=== PATIENT | male | born 1950 | race Caucasian/White ===

== ENCOUNTER 2024-06-27 09:06 | Outpatient (RCR) | payer OTHER, SELFPAY ==
--- NOTE | 2024-06-27 22:07 | CTCCONSULT_ITS ---
[address] [address] RE: SCOTT GARZON D.O.B.: 1950 AGE: 74 DATE OF CONSULTATION: 06/27/2024 DIAGNOSIS: metastatic HCC ?? REFERRING PHYSICIAN: Isreal Saba PRIMARY PHYSICIAN :ANNIE REASON FOR CONSULTATION: Hepatocellular cancer HISTORY OF PRESENT ILLNESS: 74-year-old male was admitted to the hospital with a left upper extremity weakness and multiple groun d-level falls. Patient has been having numbness and tingling for 1 and half year. Patient underwent decompression of C3-C6 with C2-T1 fusion on 05/12/2024. Biopsy done at that time showed soft tissue mass which on pathology showed hepatocellular cancer. CT chest abdomen pelvis was done which showed anterior right third rib with extension into the soft t issue. 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 GI: No nausea, vomiting, diarrhea or constipation. CVS: No palpitations or angina pains. Respiratory: No cough, chest pain or shortness of breath. VITAL SIGNS: Date 06/27/2024 Time 9:35 AM Vital Signs, Weight and PS ? ??T (F) (F) 97.9 ??P 94 ??B/P (mmHg) 127/88 ??Height (in) (inch) 70 ??Weight (lb) (lb) 270 ??BSA(D) (m*2) 2.37 PHYSICAL EXAMINATION: Alert alert oriented x 4 wearing a cervical collar in wheelchair . Chest is clear to auscultation. No wheezes or rales audible. CVS: Rhythm regular, no murmurs or gallops present. Abdomen is soft. No hepatosplenomegaly. Extremities: No pedal edema or cyanosis. LABORATORY DATA: Date Time ASSESSMENT: Metastatic hepatocellular cancer Discussed with patient that it is unlikely presentation of SCC Patient's imaging and pathological diagnosis of SCC is confirmed PLAN: ??Get [facility] rec records to review EGD If patient have no varices will get immunotherapy with bevacizumab Need to review reports from [facility] before treatment decision Port catheter placement CASEY Get records CASEY ORDERS: + Comprehensive Metabolic Panel - 12 + CBC with Auto Diff + AFP MD Follow Up 3 Week RETURN TO CLINIC: cc: PCP, Referring: Isreal Saba Electronically Signed {Object.Sanct_Date} at {Object.Sanct_Time} {Object.Sanct_ID*PnP.NameFL@M}, {Object.Sanct_ID*PnP.Suffix@U} Patient: SCOTT GARZON : 1950 MR#: [id number] Account: [id number] FOLLOW UP NOTE Page 4 of 4
--- NOTE | 2024-07-13 09:03 | PC.NURSE ---
patient arrived to the chemical lab technician for staple removal. ten vladimir removed. patient tolerated well. education given to patient and . both expressed verbal understanding.
== END 2024-07-07 23:59 | disposition home or self-care (01) ==
LOC: SCTC 09:06
PROVIDERS: PCP Internal Medicine; Referring Provider Family Medicine; Visit Provider Internal Medicine Hematology & Oncology
DX: C22.0 Liver cell carcinoma (principal); C79.51 Secondary malignant neoplasm of bone
CPT/HCPCS: 99213; G0463

== ENCOUNTER 2024-07-02 07:54 | Outpatient (CLI) | payer OTHER, SELFPAY ==
[2024-06-29 14:29] VITALS: BMI 38.7
[2024-07-02] VITALS (17 sets, daily range): BP systolic 134–160; BP diastolic 83–98; PULSE 92–109; RESP 12–25; TEMP 36.3–36.7; O2SAT 95–99
[2024-07-02 08:14] LABS: Basophils # (Auto) 0.1 Thou/mm3 (0.0-0.2); Basophils % (Auto) 1 % (0-2.5); Eosinophils # (Auto) 0.3 Thou/mm3 (0.0-0.5); Eosinophils % (Auto) 3 % (0-10); Hematocrit 44.9 % (41.0-53.0); Hemoglobin 15.1 g/dL (13.5-16.0); Immature Granulocytes % (Auto) 0 % (0-0); Immature Granulocytes Auto 0.01 Thou/mm3 (0.00-0.00); Lymphocytes # (Auto) 2.8 Thou/mm3 (1.0-4.8); Lymphocytes % (Auto) 34 % (10-50); Mean Corpuscular HGB Conc 33.6 g/dl (31.0-37.0); Mean Corpuscular Hemoglobin 29.5 pg (25.0-35.0); Mean Corpuscular Volume 88 fL (80-100); Monocytes # (Auto) 0.7 Thou/mm3 (0.0-0.8); Monocytes % (Auto) 8 % (0-12); Neutrophils # (Auto) 4.4 Thou/mm3 (1.8-7.7); Neutrophils % (Auto) 53 % (37-80); Nucleated Red Blood Cell % 0 /100 WBC (0); Platelet Count 314 Thou/mm3 (140-440); RDW Standard Deviation 45.5 fL (35.1-43.9); Red Blood Count 5.12 Miln/mm3 (4.50-5.90); White Blood Count 8.2 Thou/mm3 (3.8-10.6)
[2024-07-02 08:37] LABS: INR 1.2 (0.9-1.3); Partial Thromboplastin Time 32.1 Seconds (22.0-36.0); Prothrombin Time 12.6 Seconds (9.0-12.2)
--- NOTE | 2024-07-02 09:30 | XR_ITS ---
Examination: IR venous implantation Port-A-Cath Ultrasound-guided needle placement right internal jugular vein. Fluoroscopy AP Chest, portable single view Exam date and time: July 02, 2024 at 0856 hours INDICATIONS: Multiple myeloma, need for long-term intravenous chemotherapy. Informed consent provided Technique: A timeout was completed, verifying correct patient, procedure, site, positioning, and special equipment if applicable The patient was placed in a dependent position appropriate for central line placement based on the vein to be cannulated. The patient's right neck was prepped and draped in sterile fashion. Maximum Sterile Barrier Technique used including cap, mask, sterile gown, sterile gloves, and sterile full body drape. If ultrasound technique used: sterile gel and sterile probe covers. Hand Hygiene performed using proper scrub, soap and water, or alcohol-based hand rub. Site right portable apparatus utilized to confirm patency of the right internal blood jugular vein Utilizing ultrasonographic guidance successful 21-gauge needle puncture into the right internal jugular vein Ultrasound images were recorded and stored. Successful micropuncture with a 21-gauge needle was performed. 0.18 wire guide was introduced into the IVC under fluoroscopic guidance. The wires is then exchanged for a 0.25 J-wire guide placed in the vena cava. Blunt dissection utilized to form a pocket for the Port-A-Cath reservoir in the upper right chest 20 cm 8 [place] catheter then connected to the Port-A-Cath reservoir in place to a venous sheath into the superior vena cava in proper position The attending radiologist was present for the entire procedure Estimated blood loss2 cc. Findings: Under fluoroscopy, the tip of the Port-A-Cath is in good position in the vena cava. Portable chest x-ray, post Port-A-Cath placement, as ordered. Impression: Successful ultrasound-guided needle placement right internal jugular vein. Successful IR venous implantation Port-A-Cath Fluoroscopy 0.1 minute radiation dose 3.54 milligray 1 spot fluoroscopic chest film. AP portable chest completion procedure demonstrates satisfactory position Port-A-Cath tip SVC. May use Port-A-Cath
[2024-07-02] MEDS: LIDOCAINE INJ PF 1% 30 ML VIAL 5 ML INFL (09:40)
[2024-07-02] MEDS: HEPARIN SOD LOCK SYR 100 UNIT/ML 500 UNIT INTRACATH (09:42)
[2024-07-02] MEDS: ceFAZolin INJ 1 GM VIAL TOPICAL (09:42)
[2024-07-02] MEDS: ceFAZolin 1 GM in SODIUM CHLORIDE 0.9% 100 ML IV (09:42)
[2024-07-02] MEDS: SODIUM CHLORIDE 0.9% 500 ML 500 ML 50 ML IV (09:43)
[2024-07-02] MEDS: LIDOCAINE 1% W/EPI 1:100K 20 ML VIAL 7 ML INFL (09:45)
[2024-07-02] MEDS: fentaNYL CIT INJ 50 mCg/ML AMP 2ML 125 MCG IVP (09:49)
--- NOTE | 2024-07-13 08:34 | XR_ITS ---
Examination: IR removal vladimir at the Port-A-Cath insertion site Exam date and time: July 13, 2024 0834 hours INDICATIONS: Venous implantation Port-A-Cath July 02, 2024, patient returns for removal of vladiimr at the incision site of the Port-A-Cath TECHNIQUE AND FINDINGS: Informed consent provided. Timeout performed. Skin prepped over the entrance site of the Port-A-Cath closure devices and sterile drape applied hand hygiene Successful removal of the Port-A-Cath vladimir at the incision site Estimated blood loss 0 cc IMPRESSION: Successful IR removal closure vladimir at the Port-A-Cath insertion site
== END 2024-07-02 11:45 | disposition home or self-care (01) ==
PROVIDERS: Radiology Diagnostic Radiology; PCP Internal Medicine Hematology & Oncology; Referring Provider Internal Medicine Hematology & Oncology; Visit Provider Internal Medicine Hematology & Oncology
DX: C79.51 Secondary malignant neoplasm of bone (principal)
CPT/HCPCS: 36558; 36415; 76937; 77001; 85025; 85610; 85730; C1769; C1788; C1894; J0690; J1642; J3010; J3490; J7040; J7050

== ENCOUNTER → 2024-07-13 | Outpatient (CLI) | payer OTHER, SELFPAY | END | disposition home or self-care (01) | LOC: SDIM 08:22 | PROVIDERS: PCP Internal Medicine Hematology & Oncology; Referring Provider Radiology Diagnostic Radiology; Visit Provider Radiology Diagnostic Radiology | DX: Z48.02 Encounter for removal of sutures (principal) ==

== ENCOUNTER 2024-07-25 07:41 | Outpatient (RCR) | payer OTHER, SELFPAY ==
[2024-07-25 08:53] LABS: Collection Type, Urine Voided
[2024-07-25 08:54] LABS: Basophils # (Auto) 0.1 Thou/mm3 (0.0-0.2); Basophils % (Auto) 1 % (0-2.5); Eosinophils # (Auto) 0.2 Thou/mm3 (0.0-0.5); Eosinophils % (Auto) 3 % (0-10); Hematocrit 45.4 % (41.0-53.0); Hemoglobin 15.5 g/dL (13.5-16.0); Immature Granulocytes % (Auto) 0 % (0-0); Immature Granulocytes Auto 0.02 Thou/mm3 (0.00-0.00); Lymphocytes # (Auto) 2.6 Thou/mm3 (1.0-4.8); Lymphocytes % (Auto) 32 % (10-50); Mean Corpuscular HGB Conc 34.1 g/dl (31.0-37.0); Mean Corpuscular Hemoglobin 29.1 pg (25.0-35.0); Mean Corpuscular Volume 85 fL (80-100); Monocytes # (Auto) 0.7 Thou/mm3 (0.0-0.8); Monocytes % (Auto) 8 % (0-12); Neutrophils # (Auto) 4.6 Thou/mm3 (1.8-7.7); Neutrophils % (Auto) 56 % (37-80); Nucleated Red Blood Cell % 0 /100 WBC (0); Platelet Count 294 Thou/mm3 (140-440); RDW Standard Deviation 43.1 fL (35.1-43.9); Red Blood Count 5.32 Miln/mm3 (4.50-5.90); White Blood Count 8.2 Thou/mm3 (3.8-10.6)
[2024-07-25 09:16] LABS: Bacteria,Urine Rare; Bilirubin,Urine Negative (Negative); Blood,Urine Negative (Negative); Clarity,Urine Clear (Clear/Hazy); Color,Urine Yellow (Lt Yel-Yel); Culture Indicated,Urine Not Indicated; Glucose, Urine Negative (Negative); Hyaline Casts,Urine < 1 /hpf (0-1); Ketones,Urine Negative (Negative); Leukocyte Esterase,Urine Negative (Negative); Nitrite,Urine Negative (Negative); PH,Urine 5.5 (5.0-7.0); Protein,Urine Negative (Neg - Trace); RBC,Urine 2 /hpf (0-3); Specific Gravity,Urine 1.027 (1.001-1.035); Squamous Epithelial Cell,Urine < 1 /hpf (0-5); Urobilinogen,Urine Negative mg/dL (0.0-1.0); WBC,Urine 2 /hpf (0-5)
[2024-07-25 09:23] LABS: Alanine Aminotransferase 43 U/L (10-49); Albumin, Serum 4.6 gm/dL (3.4-4.8); Albumin/Globulin Ratio 1.3 (1.2-2.2); Alkaline Phosphatase 210 U/L (46-116); Anion Gap 7 (7-16); Aspartate Amino Transferase 69 U/L (0-34); BUN/Creatinine Ratio 20 Ratio (12-20); Bilirubin,Total 0.7 mg/dL (0.3-1.2); Blood Urea Nitrogen 14 mg/dL (9-23); Calcium 9.5 mg/dL (8.3-10.6); Calcium (Corrected) 9.5 mg/dL (8.5-10.1); Carbon Dioxide 23.3 mMol/L (20.0-31.0); Chloride 102 mMol/L (98-107); Creatinine (Component) 0.7 mg/dL (0.6-1.3); Globulin 3.5 gm/dL (2.3-3.5); Glucose 115 mg/dL (74-106); Osmolality,Calculated 266 (275-295); Potassium 3.9 mMol/L (3.4-5.1); Sodium 132 mMol/L (136-145); Thyroid Stimulating Hormone 4.27 uIU/mL (0.55-4.78); Total Protein 8.1 gm/dL (5.7-8.2); eGFR > 60 See Note
== END 2024-08-07 23:59 | disposition home or self-care (01) ==
LOC: SCTC 07:41
PROVIDERS: PCP Family Medicine; Referring Provider Internal Medicine Hematology & Oncology; Visit Provider Internal Medicine Hematology & Oncology
DX: Z51.11 Encounter for antineoplastic chemotherapy (principal); C22.0 Liver cell carcinoma; C79.51 Secondary malignant neoplasm of bone
CPT/HCPCS: 80053; 81001; 82105; 84443; 85025; 96413; 96417; 99424; 99425; A4216; J1642; J7040; J7050; J9022; Q5126

== ENCOUNTER 2024-08-15 07:43 | Outpatient (RCR) | payer OTHER, SELFPAY ==
[2024-08-15 09:25] LABS: Basophils # (Auto) 0.1 Thou/mm3 (0.0-0.2); Basophils % (Auto) 1 % (0-2.5); Eosinophils # (Auto) 0.3 Thou/mm3 (0.0-0.5); Eosinophils % (Auto) 4 % (0-10); Hematocrit 47.7 % (41.0-53.0); Hemoglobin 15.8 g/dL (13.5-16.0); Immature Granulocytes % (Auto) 0 % (0-0); Immature Granulocytes Auto 0.02 Thou/mm3 (0.00-0.00); Lymphocytes # (Auto) 2.6 Thou/mm3 (1.0-4.8); Lymphocytes % (Auto) 32 % (10-50); Mean Corpuscular HGB Conc 33.1 g/dl (31.0-37.0); Mean Corpuscular Hemoglobin 28.3 pg (25.0-35.0); Mean Corpuscular Volume 86 fL (80-100); Monocytes # (Auto) 0.5 Thou/mm3 (0.0-0.8); Monocytes % (Auto) 6 % (0-12); Neutrophils # (Auto) 4.6 Thou/mm3 (1.8-7.7); Neutrophils % (Auto) 57 % (37-80); Nucleated Red Blood Cell % 0 /100 WBC (0); Platelet Count 398 Thou/mm3 (140-440); RDW Standard Deviation 43.8 fL (35.1-43.9); Red Blood Count 5.58 Miln/mm3 (4.50-5.90); White Blood Count 8.1 Thou/mm3 (3.8-10.6)
[2024-08-15 09:52] LABS: Alanine Aminotransferase 53 U/L (10-49); Albumin, Serum 4.3 gm/dL (3.4-4.8); Albumin/Globulin Ratio 1.1 (1.2-2.2); Alkaline Phosphatase 241 U/L (46-116); Anion Gap 10 (7-16); Aspartate Amino Transferase 93 U/L (0-34); BUN/Creatinine Ratio 25 Ratio (12-20); Bilirubin,Total 0.6 mg/dL (0.3-1.2); Blood Urea Nitrogen 15 mg/dL (9-23); Calcium 9.4 mg/dL (8.3-10.6); Calcium (Corrected) 9.4 mg/dL (8.5-10.1); Carbon Dioxide 21.7 mMol/L (20.0-31.0); Chloride 103 mMol/L (98-107); Creatinine (Component) 0.6 mg/dL (0.6-1.3); Glucose 124 mg/dL (74-106); Osmolality,Calculated 271 (275-295); Potassium 3.9 mMol/L (3.4-5.1); Sodium 135 mMol/L (136-145); Thyroid Stimulating Hormone 3.27 uIU/mL (0.55-4.78); Total Protein 8.3 gm/dL (5.7-8.2); eGFR > 60 See Note
[2024-08-15 11:32] LABS: Collection Type, Urine Voided
[2024-08-15 12:47] LABS: Bilirubin,Urine Negative (Negative); Blood,Urine Negative (Negative); Clarity,Urine Clear (Clear/Hazy); Color,Urine Yellow (Lt Yel-Yel); Glucose, Urine Negative (Negative); Ketones,Urine Negative (Negative); Leukocyte Esterase,Urine Negative (Negative); Nitrite,Urine Negative (Negative); Protein,Urine Trace (Neg - Trace); RBC,Urine 13 /hpf (0-3); Specific Gravity,Urine 1.037 (1.001-1.035); Squamous Epithelial Cell,Urine 1 /hpf (0-5); Urobilinogen,Urine Negative mg/dL (0.0-1.0); WBC,Urine 3 /hpf (0-5)
== END 2024-09-07 23:59 | disposition home or self-care (01) ==
LOC: SCTC 07:43
PROVIDERS: PCP Family Medicine; Referring Provider Family Medicine; Visit Provider Internal Medicine Hematology & Oncology
DX: Z51.11 Encounter for antineoplastic chemotherapy (principal); C22.0 Liver cell carcinoma; C79.51 Secondary malignant neoplasm of bone
CPT/HCPCS: 80053; 81001; 82105; 84443; 85025; 96413; 96417; A4216; J1642; J7050; J9022; Q5126

== ENCOUNTER 2024-08-20 22:36 | Emergency (ER) | payer OTHER, SELFPAY ==
[2024-08-20 22:39] VITALS: BP 121/86; PULSE 97; RESP 18; TEMP 36.7; O2SAT 95; BMI 38.7
[2024-08-20 22:49] VITALS: PULSE 74; RESP 16; O2SAT 97; BMI 38.7
--- NOTE | 2024-08-20 23:01 | PD.EDWOUND ---
ED Wound/Laceration-RME/HPI General Chief Complaint: Wound/Laceration Stated Complaint: FALL Time Seen by Provider: 08/20/24 22:56 Arrival date/time: 08/20/24 22:36 RME / HPI RME / HPI narrative: Dr. Mata?s Main ED Evaluation: 74yo male with pmhx CA, HTN, DM, neuropathy BIBA from home presents to the ED for a fall. EMS states the patient was sitting at the edge of his bed when he fell forward and hit his head. EMS denies any LOC. Patient is AAOx2 at baseline. He denies any chest pain, abdominal pain, shortness of breath, extremity pain or any other associated symptoms. EMS denies the patient being on blood thinners. No known allergies. Related Data Home Medications ?Medication ?Instructions ?Recorded ?Confirmed gabapentin 100 mg tablet 100 mg PO Q8H 06/29/24 06/29/24 lidocaine 5 % topical patch 1 patch topical QDAY 06/29/24 06/29/24 methocarbamol 500 mg tablet 500 mg PO QID PRN Pain 06/29/24 06/29/24 sodium chloride 1 gram tablet 1,000 mg PO QID hypotension 06/29/24 06/29/24 Allergies Allergy/AdvReac Type Severity Reaction Status Date / Time No Known Allergies Allergy Verified 06/29/24 14:28 Review of Systems Review of Systems Systems Reviewed: All systems reviewed, normal except as documented Past Medical History Past Medical History NEUROLOGIC: Negative Neurological Disorders CARDIAC: Positive Cardiac Disorders, Cardiac Arrhythmia, Hypertension and Hypotension; Negative Hypercholesterolemia or Congestive Heart Failure RESPIRATORY: Negative Chronic Obstructive Pulmonary Disease (COPD) GASTROINTESTINAL: Positive Cirrhosis; Negative Gastrointestinal Disorders GENITOURINARY: Negative Genitourinary Disorders or Renal Disease MUSCULOSKELETAL: Positive Musculoskeletal Disorders (cannot lift left shoulder; weakness use wheelchair and walker for mobility) and Arthritis ENDOCRINE: Negative Endocrine Disorders, Diabetes Mellitus Type 1 or Diabetes Mellitus Type 2 HEMATOLOGIC: Negative Blood Disorders OTHER HISTORY: Positive Cancer (hepatocellular carcinoma (liver)); Negative Blood Transfusions or Anesthesia Reactions Surgical History SURGICAL: Negative Cardiac Surgery, Endocrine Surgery, Abdominal Surgery or Joint Replacement Social History SMOKING STATUS: Never smoker ED Exam Narrative Physical exam: GENERAL APPEARANCE: AxOx4, generally well-appearing, no acute distress. HEENT: NC, 3 cm laceration to the right scalp. MMM. EOMI, clear conjunctiva, oropharynx clear. NECK: Supple without lymphadenopathy. No stiffness or restricted ROM. HEART: Normal rate and regular rhythm, normal S1/S1, no m/r/g LUNGS: CTAB, moving air well. No crackles or wheezes are heard. ABDOMEN: Soft, nontender, nondistended with good bowel sounds heard. BACK: No midline C/T/L spine pain or deformity, No CVAT, no obvious deformity. EXTREMITIES: Without cyanosis, clubbing or edema. MUSCULOSKELETAL: FROM of all major joints, no chest tenderness NEUROLOGICAL: Grossly nonfocal. Alert and oriented, moving all 4 extremities. CN not formally tested but appear grossly intact. Observed to ambulate with normal gait. Skin: Warm and dry without any rash. Course Quality Measures none Orders Category Date Time Status EKG (ED ONLY) *Do not use* NOW Care 08/20/24 23:33 Completed EKG (ED ONLY) *Do not use* NOW Care 08/21/24 03:[address] cervical spine wo con Urgent Exams 08/21/24 00:[address] head/brain wo con Stat Exams 08/20/24 23:22 Taken EKG (ED Only) Stat Exams 08/20/24 23:33 Ordered EKG (ED Only) Stat Exams 08/21/24 03:34 Draft CBC Stat Lab 08/20/24 23:34 Completed CMP [Comprehensive Metabolic Panel] Stat Lab 08/20/24 23:34 Completed Magnesium Stat Lab 08/20/24 23:34 Completed Troponin I Stat Lab 08/21/24 00:14 Completed Troponin I Stat Lab 08/21/24 02:44 Completed Diltiazem [Cardizem] Med 08/21/24 00:36 Discontinued 60 mg PO X1 ONE Sodium Chloride 0.9% 1000 ml [Ns] 1,000 ml Med 08/21/24 00:55 Discontinued IV 999 mls/hr Vital Signs Vital signs: Vital Signs Temperature 98.1 F 08/20/24 22:39 Pulse Rate 97 08/20/24 22:39 Respiratory Rate 18 08/20/24 22:39 Blood Pressure 121/86 H 08/20/24 22:39 Pulse Oximetry (%) 95 08/20/24 22:39 Oxygen Delivery Method Room Air 08/20/24 22:39 Pulse ox is 95% on room air, which is normal according to my interpretation. Procedures -ED Laceration Laceration 1: Site: scalp Side (If applicable): right Size (cm): 3 Description: linear Skin layer closed with: other (3 vladimir; no anesthetic needed) Wound / Laceration MDM Narrative MDM Narrative:: Scribe Attestation: 08/21/24 Brianna Bajwa am scribing for and in the presence of Dr. Mata. Patient data External records reviewed:: [facility] previous records (Per chart review, patient was seen here on 05/10/24 for a cervical spinal mass.) Clinical information provided by:: EMS Social determinants that could affect healthcare access:: none Patient has the following chronic illnesses:: metastatic hepatocellular cancer, HTN How is presenting disease/condition affected by chronic disease/condition?: uneffected by Evaluation data The following diagnostics were reviewed and interpreted by me:: lab results, radiology exam(s) and EKG tracing(s) Lab and/or radiology exams considered but not ordered:: none Interpretation Summary: CBC is normal, Sodium is slightly low at 130, troponin is negative, Magnesium is normal, repeat troponin is normal, according to my interpretation. EKG done at 0025, aFib RvR, rate of 120, widened QRS, LBBB, aFib and LBBB are new compared to previous EKG done on 05/11/24. Repeat EKG done at 0341, NSR, rate of 96, widened QRS, IVCD pattern, no acute ST or T wave changes, according to my interpretation. ----- Telerad Preliminary Report Draft Patient: GAY GARZON. Record#: [id number] Birthdate: 1950 Age/Sex: 74 / M Location: [facility] Attending Dr: Ordering Physician: Date of Service: Procedure(s): Accession Number(s): cc: ~ CT scan of the head without intravenous contrast (axial sections with sagittal and coronal reformats) August 20, 2024 at 2347 hours Clinical History: Ground-level fall. No prior study is available for comparison. Findings: There is no evidence of intracranial hemorrhage, mass effect or midline shift. There is mild volume loss. The calvarium is intact. The mastoid air cells and the visualized paranasal sinuses are clear. Right frontal soft tissue swelling/hematoma. Impression: No evidence of intracranial hemorrhage, midline shift or calvarial fracture Mild volume loss. Report Electronically Signed By: Misbah Montoya 08/21/2024 12:54:22 AM [EST] ----- Telerad Preliminary Report Draft Patient: GAY GARZON Record#: [id number] Birthdate: 1950 Age/Sex: 74 / M Location: [facility] Attending Dr: Ordering Physician: Date of Service: Procedure(s): Accession Number(s): cc: ~ CT scan of the cervical spine without intravenous contrast (axial sections with sagittal and coronal reformats) August 21, 2024 at 0016 hours Clinical History: GLF No prior study is available for comparison. Findings: The evaluation is slightly limited by streak artifact. There is no acute fracture or subluxation. There is spinal fusion at the C2-T1 level with fusion rods and pedicle screws, and laminectomy defects at the C3-C6 levels. There is soft tissue mass with destruction of the left C4 body/left lateral mass and C5 body/left lateral mass and extension into the left paravertebral soft tissues. Spinal canal extension at C5 cannot be excluded. There are multilevel mild to moderate degenerative changes Impression: No evidence of acute fracture or subluxation. Soft tissue mass with destruction of the left C4 body/left lateral mass and C5 body/left lateral mass and extension into the left paravertebral soft tissues. Spinal canal extension at C5 cannot be excluded. Metastases cannot be excluded. Recommend further evaluation with MRI with intravenous contrast. Mild to moderate degenerative changes as described. Report Electronically Signed By: Misbah Montoya 08/21/2024 1:04:57 AM [EST] Medications / Prescriptions Medications or Prescriptions considered but not ordered:: none Medication administrations:: Medication Administration History Discontinued Medications Diltiazem HCl (Diltiazem 30 Mg Tablet) 60 mg PO X1 ONE Stop: 08/21/24 00:37 Last Admin: 08/21/24 01:13 Dose: 60 mg Documented By: ARIS Sodium Chloride (Ns) 1,000 mls @ 999 mls/hr IV .Q1H1M ONE Stop: 08/21/24 01:55 Last Infusion: 08/21/24 02:55 Dose: Infused Documented By: Admin: 08/21/24 01:15 Dose: 999 mls/hr Documented By: CB see above Consultations Consultation(s) initiated? (list below): No Diagnosis Wound Differential Diagnosis: laceration and other (fracture, dislocation, contusion, ICH) Most likely diagnosis given after review of the tests above:: see below Admission Indicated Admission indicated?: not indicated Admission Request Was there a request for admission?: No Disposition Plan Disposition Plan: Discharge Discharge Attestation Discharge Attestation: The patient and all family members were given an opportunity to ask questions and understood the discharge instructions. Discharge instructions specifically effects, indications for sooner follow up or return to the emergency department, and the expected course of current diagnosis. Patient condition: Stable Discharge Plan Plan Patient Disposition: HOME (Self Care) Prescriptions/Referrals Prescriptions/Med Rec: No Action methocarbamol 500 mg Tablet 500 mg PO QID PRN (Reason: Pain) Rx Instructions: 1.5 tab PO 4x day prn sodium chloride 1 gram Tablet 1,000 mg PO QID Rx Instructions: 1gm tab-take 2 tablets PO 4x a day lidocaine 5 % Adhesive Patch,Medicated 1 patch TOPICAL QDAY Rx Instructions: leave on most painful area for up to 12 hrs. (off 12 hrs, on 12 hrs) gabapentin 100 mg Tablet 100 mg PO Q8H Referrals: No Primary/Family,Physician [Primary Care Provider] - In 1 week Problem List Clinical Impression: Ground-level fall, Laceration of scalp, Dehydration Patient/Caregiver Discharge Instructions Education Materials: ED Dehydration (Adult), ED Head Injury (Adult), ED Laceration Scalp Sutures or ... Additional Instructions: Follow-up with your primary care doctor in 5 to 7 days for recheck and removal of your vladimir. You can return to the emergency department sooner symptoms worsen or if you notice any new, concerning issues. Print Language: Monegasque Stand Alone Forms: [employer] Award Info., Patient Portal Info Letter
[2024-08-20 23:17] VITALS: BP 131/88; PULSE 121; RESP 18; O2SAT 95
--- NOTE | 2024-08-20 23:22 | XR_ITS ---
Examination: CT brain head without contrast. 2-D sagittal coronal reconstructions Date and time of exam:August 20, 2024 at 1147 hours INDICATIONS: Ground-level fall striking the right side of the head with headache today CTDI: vol (mGy):53.9 DLP: (mGycm):1104 Technique: Multiple CT axial sections of the brain have been obtained, 5 mm slice thickness. Contrast has not been administered. 2-D sagittal, coronal reconstructions have been obtained Low dose protocols were performed. One or more of the following dose reduction techniques were used; automated exposure control, adjustment of the mA and/or KV according to patient size, use of iterative reconstruction technique. Findings: No significant ventricular enlargement. Intra-axial or extra-axial hemorrhage density is not seen. No mass effect or midline shift Basal cisterns are not remarkable. Fourth ventricle is midline. Cranial vault intact. Impression: Negative for acute hemorrhage, mass effect or midline shift
--- NOTE | 2024-08-21 00:22 | XR_ITS ---
Examination: CT cervical spine without contrast 2-D sagittal reconstructions 2-D coronal reconstructions 3-D reconstructions. Exam date and time:August 21, 2024 1216 hours INDICATIONS: Ground-level fall with injury to the neck, neck pain CTDI:vol (mGy) 8.93 DLP: (mGycm) 207 Technique: Multiple 2 mm axial sections of the cervical spine have been obtained. The coronal and sagittal reconstructions have been obtained. 3-D reconstructions have been obtained. Low dose protocols were performed. One or more of the following dose reduction techniques were used; automated exposure control, adjustment of the mA and/or KV according to patient size, use of iterative reconstruction technique. Findings: Soft tissue mass with bone destruction involving the C4, C5 vertebral bodies involving the pedicle on the left side at C4 and involving the entire C5 vertebral body Impression: No acute cervical fracture. Odontoid is intact Transpedicular stabilization, extensive involving cervical vertebral bodies IMPRESSION: No acute cervical fracture Prominent bone destruction involving C4, and C5 most consistent with osseous metastatic disease Recommend MRI cervical spine follow-up, pre and postcontrast to assess for cord compression
[2024-08-21 00:53] LABS: Alanine Aminotransferase 31 U/L (10-49); Albumin, Serum 4.2 gm/dL (3.4-4.8); Alkaline Phosphatase 272 U/L (46-116); Anion Gap 10 (7-16); Aspartate Amino Transferase 73 U/L (0-34); BUN/Creatinine Ratio 20 Ratio (12-20); Blood Urea Nitrogen 16 mg/dL (9-23); Calcium 9.5 mg/dL (8.3-10.6); Calcium (Corrected) 9.5 mg/dL (8.5-10.1); Carbon Dioxide 23.9 mMol/L (20.0-31.0); Chloride 96 mMol/L (98-107); Creatinine (Component) 0.8 mg/dL (0.6-1.3); Estimated Creatinine Clearance 107.9 mL/min (>60); Globulin 4.2 gm/dL (2.3-3.5); Glucose 124 mg/dL (74-106); Magnesium 2.3 mg/dL (1.6-2.6); Osmolality,Calculated 263 (275-295); Potassium 4.8 mMol/L (3.4-5.1); Sodium 130 mMol/L (136-145); Total Protein 8.4 gm/dL (5.7-8.2); Troponin I < 0.020 ng/mL (0.0-0.045); eGFR > 60 See Note
--- NOTE | 2024-08-21 00:55 | PRELIM_ITS ---
CT scan of the head without intravenous contrast (axial sections with sagittal and coronal reformats) August 20, 2024 at 2347 hoursClinical History: Ground-level fall.No prior study is available for co mparison. Findings:There is no evidence of intracranial hemorrhage, mass effect or midline shift. The re is mild volume loss. The calvarium is intact. The mastoid air cells and the visualized paranasal s inuses are clear. Right frontal soft tissue swelling/hematoma. Impression:No evidence of intracranial hemorrhage, midline shift or calvarial fractureMild volume loss. Report Electronically Signed By: Sa viviane Montoya 08/21/2024 12:54:22 AM [EST]
[2024-08-21 01:01] LABS: Basophils # (Auto) 0.1 Thou/mm3 (0.0-0.2); Basophils % (Auto) 1 % (0-2.5); Eosinophils # (Auto) 0.1 Thou/mm3 (0.0-0.5); Eosinophils % (Auto) 1 % (0-10); Hematocrit 48.7 % (41.0-53.0); Hemoglobin 16.2 g/dL (13.5-16.0); Immature Granulocytes % (Auto) 0 % (0-0); Immature Granulocytes Auto 0.03 Thou/mm3 (0.00-0.00); Lymphocytes % (Auto) 21 % (10-50); Mean Corpuscular HGB Conc 33.3 g/dl (31.0-37.0); Mean Corpuscular Hemoglobin 28.7 pg (25.0-35.0); Mean Corpuscular Volume 86 fL (80-100); Monocytes # (Auto) 0.9 Thou/mm3 (0.0-0.8); Monocytes % (Auto) 10 % (0-12); Neutrophils # (Auto) 6.2 Thou/mm3 (1.8-7.7); Neutrophils % (Auto) 67 % (37-80); Nucleated Red Blood Cell % 0 /100 WBC (0); Platelet Count 390 Thou/mm3 (140-440); RDW Standard Deviation 46.2 fL (35.1-43.9); Red Blood Count 5.64 Miln/mm3 (4.50-5.90); White Blood Count 9.3 Thou/mm3 (3.8-10.6)
--- NOTE | 2024-08-21 01:05 | PRELIM_ITS ---
CT scan of the cervical spine without intravenous contrast (axial sections with sagittal and coronal reformats) August 21, 2024 at 0016 hours Clinical History: GLFNo prior study is available for compar balbina. Findings:The evaluation is slightly limited by streak artifact. There is no acute fracture or s ubluxation. There is spinal fusion at the C2-T1 level with fusion rods and pedicle screws, and joselin ctomy defects at the C3-C6 levels. There is soft tissue mass with destruction of the left C4 body/lef t lateral mass and C5 body/left lateral mass and extension into the left paravertebral soft tissues. Spinal canal extension at C5 cannot be excluded. There are multilevel mild to moderate degenerative changesImpression:No evidence of acute fracture or subluxation.Soft tissue mass with destruction of the left C4 body/left lateral mass and C5 body/left lateral mass and extension into the left paraver tebral soft tissues. Spinal canal extension at C5 cannot be excluded. Metastases cannot be excluded. Recommend further evaluation with MRI with intravenous contrast.Mild to moderate degenerative change s as described. Report Electronically Signed By: Misbah Montoya 08/21/2024 1:04:57 AM [EST]
[2024-08-21 01:13] VITALS: BP 114/84; PULSE 126
[2024-08-21] MEDS: DILTIAZEM 30 MG TABLET 60 MG PO (01:13)
[2024-08-21] MEDS: SODIUM CHLORIDE 0.9% 1000 ML 1,000 ML 999 ML IV (01:15)
[2024-08-21 01:16] VITALS: BP 114/84; PULSE 123; RESP 20; TEMP 36.8; O2SAT 95
--- NOTE | 2024-08-21 03:34 | EKG_ITS ---
[facility] Test Date: 2024-08-21 Pat Name: GAY AGRZON Department: Room: - Gender: Male Content Manager: : 1950 Requested By: Cesar Mata Order Number: [id number] Reading MD: Cesar Mata Measurements Intervals [place] Rate: 120 P: RI: QRS: 0 QRSD: 136 T: 136 QT: 340 QTc: 481 Interpretive Statements ATRIAL FIBRILLATION WITH RAPID VENTRICULAR RESPONSE LEFT BUNDLE BRANCH BLOCK [120+ ms QRS DURATION, 80+ ms Q/S IN V1/V2, 85+ ms R IN I/aVL/V5/V6] Compared to ECG 05/10/2024 13:17:04 Left bundle-branch block now present Sinus rhythm no longer present T-wave abnormality no longer present /store/S0/[id number]/[id number].pdf
[2024-08-21 03:52] LABS: Troponin I < 0.020 ng/mL (0.0-0.045)
[2024-08-21 05:45] VITALS: BP 128/97; PULSE 102; RESP 18; TEMP 36.6; O2SAT 95
[2024-08-21 09:43] VITALS: BP 125/83; PULSE 92; RESP 18; TEMP 36.7; O2SAT 99
--- NOTE | 2024-08-21 09:48 | PC.CC ---
ASW approached by bedside RN, pt will need transport home. 09-ASW contacted [facility], pending call back with ETA. 09-Call back from [facility]. Transport ETA set for 1445. ASW informed that pt refused to wait until 1445 and is being transported by family. 09-ASW made contact with [facility], to cancel transport request.
== END 2024-08-21 09:47 | disposition home or self-care (01) ==
PROVIDERS: Emergency Provider Emergency Medicine
DX: S01.01XA Laceration without foreign body of scalp, initial encounter (principal); E86.0 Dehydration; M79.89 Other specified soft tissue disorders; I48.91 Unspecified atrial fibrillation; I44.7 Left bundle-branch block, unspecified; I10 Essential (primary) hypertension; W06.XXXA Fall from bed, initial encounter
CPT/HCPCS: 12002; 36415; 70450; 72125; 80053; 83735; 84484; 85025; 93005; 96360; 96361; 99284; J7030; A9270

== ENCOUNTER 2024-09-19 08:18 | Outpatient (RCR) | payer OTHER, SELFPAY | END 2024-10-05 23:59 | disposition home or self-care (01) | LOC: SCTC 08:18 | PROVIDERS: Referring Provider Internal Medicine Hematology & Oncology; Visit Provider Internal Medicine Hematology & Oncology | DX: C22.0 Liver cell carcinoma (principal); C79.51 Secondary malignant neoplasm of bone | CPT/HCPCS: 80053; 81001; 84443; 85025 ==

== ENCOUNTER 2024-09-19 08:44 | Emergency (ER) | payer OTHER, SELFPAY ==
[2024-09-19] VITALS (8 sets, daily range): BP systolic 119–153; BP diastolic 77–103; PULSE 98–133; RESP 15–20; TEMP 36.8–38.1; O2SAT 95–97; BMI 33.0
--- NOTE | 2024-09-19 08:58 | EKG_ITS ---
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
--- NOTE | 2024-09-19 08:59 | EDRME_ITS ---
Rapid Medical Screening Exam RME Arrival date/time: 09/19/24 08:44 74-year-old male with a history of liver cancer that has metastasized to his lungs and throat presents to the emergency room with a chief complaint of altered mental status x 6 days. Patient was sent over by the cancer treatment center for altered mental status, hallucinations, insomnia. Patient was recently seen at the [facility] and the at bedside was told that if symptoms get worse to bring him to the emergency room. I have greeted and performed a focused initial assessment of this patient. A comprehensive ED assessment and evaluation of the patient, analysis of all test results, and completion of the medical decision making process will be conducted by additional ED providers. Chief Complaint: Altered Mental Status Vital signs reviewed by provider: Yes
--- NOTE | 2024-09-19 08:59 | XR_ITS ---
Examination: CT brain head without contrast. 2-D sagittal coronal reconstructions Date and time of exam:September 19, 2024 at 0929 hours INDICATIONS: Onset altered mental status today CTDI: vol (mGy):54 DLP: (mGycm):1108 Technique: Multiple CT axial sections of the brain have been obtained, 5 mm slice thickness. Contrast has not been administered. 2-D sagittal, coronal reconstructions have been obtained Low dose protocols were performed. One or more of the following dose reduction techniques were used; automated exposure control, adjustment of the mA and/or KV according to patient size, use of iterative reconstruction technique. Findings: No significant ventricular enlargement. Intra-axial or extra-axial hemorrhage density is not seen. No mass effect or midline shift Basal cisterns are not remarkable. Fourth ventricle is midline. Cranial vault intact. Impression: Negative for acute hemorrhage, mass effect or midline shift Advise clinical correlation follow-up accordingly
--- NOTE | 2024-09-19 09:22 | PD.EDAMS ---
Altered Mental Status RME/HPI General Chief Complaint: Altered Mental Status Stated Complaint: AMS, SOB, TACHYCARDIA, NOT SLEEPING, HALLUCINATING Time Seen by Provider: 09/19/24 09:04 Arrival date/time: 09/19/24 08:44 RME / HPI RME / HPI narrative: 09/19/24 08:44 74-year-old male with a history of liver cancer that has metastasized to his lungs and throat presents to the emergency room with a chief complaint of altered mental status x 6 days. Patient was sent over by the cancer treatment center for altered mental status, hallucinations, insomnia. Patient was recently seen at the [facility] and the at bedside was told that if symptoms get worse to bring him to the emergency room. I have greeted and performed a focused initial assessment of this patient. A comprehensive ED assessment and evaluation of the patient, analysis of all test results, and completion of the medical decision making process will be conducted by additional ED providers. DR. ARAUJO MAIN ED EVALUATION: 74 year old male presents to the Emergency Department with complaint of altered mental status. Patient was sent over by the cancer treatment center for altered mental status, hallucinations, insomnia. Per , patient has not been sleeping for 3 days, has blood shot eyes, and has been taking with someone that is not there. No similar symptoms in past. Patient complains of neck pain on right side and right shoulder pain. Patient states he's had decreased intake because he does not feel like eating. No diarrhea or constipation. PMHx: Metastatic HCC on chemo via IV, hypertension, DM, and neuropathy. Social Hx: No tobacco, alcohol, or substance use. PCP at the [place] clinic. Related Data Home Medications ?Medication ?Instructions ?Recorded ?Confirmed gabapentin 100 mg tablet 100 mg PO Q8H 06/29/24 06/29/24 lidocaine 5 % topical patch 1 patch topical QDAY 06/29/24 06/29/24 methocarbamol 500 mg tablet 500 mg PO QID PRN Pain 06/29/24 06/29/24 sodium chloride 1 gram tablet 1,000 mg PO QID hypotension 06/29/24 06/29/24 Allergies Allergy/AdvReac Type Severity Reaction Status Date / Time No Known Allergies Allergy Verified 06/29/24 14:28 Review of Systems Review of Systems Systems Reviewed: All systems reviewed, normal except as documented Narrative Review of Systems: GEN: No fever, no chills, no weight loss EYES: No discharge, no visual changes, no pain HEENT: No ear pain, no congestion, no sore throat PULM: No shortness of breath, no cough, no congestion CV: No chest pain, no dyspnea on exertion, no palpitations GI: No nausea, no vomiting, no diarrhea, no pain, no constipation : No frequency, no urgency and no dysuria MUSC/SKEL: + neck pain on right side, + right shoulder pain., no back pain SKIN: No rash PSYCH: + hallucinations, no depression HEME/LYMPH: No easy bleeding or bruising tendencies NEURO: No weakness, no headache, + AMS per (see HPI) Past Medical History Past Medical History CARDIAC: Positive Cardiac Disorders, Cardiac Arrhythmia, Hypertension and Hypotension GASTROINTESTINAL: Positive Cirrhosis MUSCULOSKELETAL: Positive Musculoskeletal Disorders (cannot lift left shoulder; weakness use wheelchair and walker for mobility) and Arthritis OTHER HISTORY: Positive Cancer (hepatocellular carcinoma (liver)) Social History SMOKING STATUS: Never smoker SUBSTANCE USE: does not use ALCOHOL: Never ED Exam Narrative Physical exam: GENERAL APPEARANCE: Pallor; appears a little confused VITALS: All vitals were reviewed and the pulse ox is 95% on room air, which is normal according to my interpretation. HEENT: Normocephalic, atraumatic; pupils equal, round, reactive to light; EOMI; mucous membranes pink, moist; oropharynx clear NECK: Supple LUNGS: CTABL; no wheezes, no rales, no rhonchi HEART: Tachycardic at 133; regular rhythm; normal S1, S2; no murmurs ABDOMEN: non distended; normal BS; soft, no tenderness, no guarding, no rebound; no masses, no organomegaly, no hernia BACK: no CVA tenderness EXTREMITIES: patient holding his right shoulder in a really stiff position NEUROLOGIC: awake; alert and oriented x4; cranial nerves II-XII grossly intact; no focal sensory or motor deficits PSYCHIATRIC: appropriate mood and affect SKIN: warm, dry, normal color; no rashes Course Quality Measures none Orders Category Date Time 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 Care 09/19/24 08:58 Completed Continuous Pulse Oximetry NOW Care 09/19/24 08:58 Completed EKG (ED ONLY) *Do not use* NOW Care 09/19/24 08:58 Completed In and Out Catheter X1 Care 09/19/24 08:58 Completed Insert IV NOW Care 09/19/24 11:[address] abdomen pelvis wo con Stat Exams 09/19/24 09:[address] cervical spine wo con Stat Exams 09/19/24 09:[address] head/brain wo con Stat Exams 09/19/24 08:59 Completed EKG (ED Only) Stat Exams 09/19/24 08:58 Ordered Alcohol, Blood Medical Stat Lab 09/19/24 09:25 Completed Ammonia Stat Lab 09/19/24 09:25 Completed Blood Culture (Lab) Stat Lab 09/19/24 09:25 Received CBC Stat Lab 09/19/24 09:25 Completed Comprehensive Metabolic Panel Stat Lab 09/19/24 09:25 Completed Drug Screen,Urine Stat Lab 09/19/24 11:00 Completed Magnesium Stat Lab 09/19/24 09:25 Completed Partial Thromboplastin Time Stat Lab 09/19/24 09:25 Completed Prothrombin Time with INR Stat Lab 09/19/24 09:25 Completed Troponin I Stat Lab 09/19/24 09:25 Completed Urinalysis Stat Lab 09/19/24 11:00 Completed Urine Culture Stat Lab 09/19/24 11:00 Received Morphine Inj Med 09/19/24 11:21 Discontinued 5 mg IVP X1 ONE Ondansetron Inj [Zofran Inj] Med 09/19/24 11:21 Discontinued 4 mg IV X1 ONE Sodium Chloride 0.9% 1000 ml [Ns] 1,000 ml Med 09/19/24 10:43 Discontinued IV 999 mls/hr Vital Signs Vital signs: Vital Signs Temperature 98.5 F 09/19/24 08:56 Pulse Rate 133 H 09/19/24 08:56 Respiratory Rate 18 09/19/24 08:56 Blood Pressure 132/84 H 09/19/24 08:56 Pulse Oximetry (%) 95 09/19/24 08:56 Oxygen Delivery Method Room Air 09/19/24 08:56 Altered Mental Status MDM Narrative MDM Narrative:: IAshley am scribing for and in the presence of Dr. Araujo. Patient data External records reviewed:: [facility] previous records (Reviewed cervical CT findings from 08/21/2024 which shows a mass with bone destruction involving C4, and C5 most consistent with osseous metastatic disease. Reviewed last ED visit dated 08/21/24 discharged with the following: Dehydration) Clinical information provided by:: patient and spouse Social determinants that could affect healthcare access:: none Patient has the following chronic illnesses:: Metastatic HCC on chemo via IV, hypertension, DM, and neuropathy. How is presenting disease/condition affected by chronic disease/condition?: exacerbated by Evaluation data The following diagnostics were reviewed and interpreted by me:: lab results, radiology exam(s) and EKG tracing(s) Lab and/or radiology exams considered but not ordered:: none Interpretation Summary: Reviewed cervical CT findings from 08/21/2024 which shows a mass with bone destruction involving C4, and C5 most consistent with osseous metastatic disease. RADIOLOGY Procedure(s): CT cervical spine wo con Accession Number(s): [id number] cc: Medardo Love MD; Pat Araujo MD~ Examination: CT cervical spine without contrast 2-D sagittal reconstructions 2-D coronal reconstructions 3-D reconstructions. Exam date and time:September 19, 2024 1019 hours INDICATIONS: Patient fell today with injury to the neck, neck pain CTDI:vol (mGy) 14 DLP: (mGycm) 377 Technique: Multiple 2 mm axial sections of the cervical spine have been obtained. The coronal and sagittal reconstructions have been obtained. 3-D reconstructions have been obtained. Low dose protocols were performed. One or more of the following dose reduction techniques were used; automated exposure control, adjustment of the mA and/or KV according to patient size, use of iterative reconstruction technique. Findings: Status post cervical stabilization extending with transpedicular screws to T1 Gross bone destruction involving the posterior left margin of C4 including the pedicle and the entire C5 vertebral body Small osteolytic area C6 Extensive laminectomy No acute fracture IMPRESSION: Status post extensive cervical stabilization Gross bone destruction involving posterior margin C4 and the entire C5 vertebral body MRI cervical spine post contrast follow-up would best assess full extent of tumor involvement of the cervical cord Dictated By: Medardo Love MD Procedure(s): CT abdomen pelvis wo [facility] Accession Number(s): [id number] cc: Medardo Love MD; Pat Araujo MD; Norma Aden MD~ Examination: CT abdomen and pelvis without contrast. Coronal 3-D reconstructions. Sagittal 2-D reconstructions. Date and time of exam:September 19, 2024 1023 hours Comparison August 15, 2013 INDICATIONS: Onset generalized abdominal pain today CTDI: vol (mGy): 19.2 DLP: (mGycm): 1225 Technique: Axial images of the abdomen have been obtained, 3 mm slice thickness Intravenous contrast material has not been administered. Low dose protocols were performed. One or more of the following dose reduction techniques were used; automated exposure control, adjustment of the mA and/or KV according to patient size, use of iterative reconstruction technique. Findings: Cirrhosis, liver lobular in contour Distended gallbladder with mild increased density Spleen is not enlarged No pancreatic mass Indeterminate left adrenal mass 18 mm Small parapelvic renal cysts No renal calculi or ureteral calculi Abdominal aortic calcification no aneurysmal dilatation Normal appendix No bowel obstruction No diverticulitis Moderate stool in the rectum Normal seminal vesicles Prostate calcifications AP prostate dimension 4 cm 4 mm 1 mm bladder calculi Moderate lumbar spondylosis Moderate bilateral hip osteoarthritis IMPRESSION: Cirrhosis Distended gallbladder with mild increased density, recommend hepatobiliary sonography follow-up Indeterminate left adrenal mass, 18 mm, recommend MRI abdomen adrenal glands follow-up pre and postcontrast to exclude primary adrenal tumor versus adrenal metastasis Normal appendix No bowel obstruction Small bladder calculi Dictated By: Medardo Love MD Procedure(s): CT head/brain wo con Accession Number(s): [id number] cc: Willie Ronquillo; Medardo Love MD~ Examination: CT brain head without contrast. 2-D sagittal coronal reconstructions Date and time of exam:September 19, 2024 at 0929 hours INDICATIONS: Onset altered mental status today CTDI: vol (mGy):54 DLP: (mGycm):1108 Technique: Multiple CT axial sections of the brain have been obtained, 5 mm slice thickness. Contrast has not been administered. 2-D sagittal, coronal reconstructions have been obtained Low dose protocols were performed. One or more of the following dose reduction techniques were used; automated exposure control, adjustment of the mA and/or KV according to patient size, use of iterative reconstruction technique. Findings: No significant ventricular enlargement. Intra-axial or extra-axial hemorrhage density is not seen. No mass effect or midline shift Basal cisterns are not remarkable. Fourth ventricle is midline. Cranial vault intact. Impression: Negative for acute hemorrhage, mass effect or midline shift Advise clinical correlation follow-up accordingly Dictated By: Medardo Love MD Medications / Prescriptions Medications or Prescriptions considered but not ordered:: none Medication administrations:: Medication Administration History Discontinued Medications Sodium Chloride (Ns) 1,000 mls @ 999 mls/hr IV .Q1H1M ONE Stop: 09/19/24 11:43 Last Infusion: 09/19/24 12:27 Dose: Infused Documented By: Admin: 09/19/24 11:25 Dose: 999 mls/hr Documented By: JUSTYNA Morphine Sulfate (Morphine Sulf Inj 10 Mg/Ml Vial) 5 mg IVP X1 ONE Stop: 09/19/24 11:22 Last Admin: 09/19/24 11:27 Dose: 5 mg Documented By: JUSTYNA Ondansetron HCl (Ondansetron Inj 2 Mg/Ml Inj 2 Ml) 4 mg IV X1 ONE Stop: 09/19/24 11:22 Last Admin: 09/19/24 11:27 Dose: 4 mg Documented By: DB see above if any Consultations Consultation(s) initiated? 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 Discharge instructions specifically effects, indications for sooner follow up or return to the emergency department, and the expected course of current diagnosis. Patient condition: Stable Discharge Plan Plan Patient Disposition: HOME (Self Care) Prescriptions/Referrals Prescriptions/Med Rec: No Action methocarbamol 500 mg Tablet 500 mg PO QID PRN (Reason: Pain) Rx Instructions: 1.5 tab PO 4x day prn sodium chloride 1 gram Tablet 1,000 mg PO QID Rx Instructions: 1gm tab-take 2 tablets PO 4x a day lidocaine 5 % Adhesive Patch,Medicated 1 patch TOPICAL QDAY Rx Instructions: leave on most painful area for up to 12 hrs. 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
[2024-09-19 09:39] LABS: Basophils # (Auto) 0.1 Thou/mm3 (0.0-0.2); Basophils % (Auto) 1 % (0-2.5); Eosinophils % (Auto) 0 % (0-10); Hemoglobin 15.4 g/dL (13.5-16.0); Immature Granulocytes % (Auto) 0 % (0-0); Immature Granulocytes Auto 0.04 Thou/mm3 (0.00-0.00); Lymphocytes # (Auto) 1.6 Thou/mm3 (1.0-4.8); Lymphocytes % (Auto) 15 % (10-50); Mean Corpuscular HGB Conc 33.5 g/dl (31.0-37.0); Mean Corpuscular Hemoglobin 28.2 pg (25.0-35.0); Mean Corpuscular Volume 84 fL (80-100); Monocytes # (Auto) 1.1 Thou/mm3 (0.0-0.8); Monocytes % (Auto) 11 % (0-12); Neutrophils # (Auto) 7.8 Thou/mm3 (1.8-7.7); Neutrophils % (Auto) 73 % (37-80); Nucleated Red Blood Cell % 0 /100 WBC (0); Platelet Count 392 Thou/mm3 (140-440); RDW Standard Deviation 50.2 fL (35.1-43.9); Red Blood Count 5.47 Miln/mm3 (4.50-5.90); White Blood Count 10.7 Thou/mm3 (3.8-10.6)
[2024-09-19 09:52] LABS: INR 1.3 (0.9-1.3); Partial Thromboplastin Time 36.5 Seconds (22.0-36.0); Prothrombin Time 13.7 Seconds (9.0-12.2)
[2024-09-19 09:54] LABS: Ammonia 25 uMol/L (11-32)
--- NOTE | 2024-09-19 09:56 | XR_ITS ---
Examination: CT abdomen and pelvis without contrast. Coronal 3-D reconstructions. Sagittal 2-D reconstructions. Date and time of exam:September 19, 2024 1023 hours Comparison August 15, 2013 INDICATIONS: Onset generalized abdominal pain today CTDI: vol (mGy): 19.2 DLP: (mGycm): 1225 Technique: Axial images of the abdomen have been obtained, 3 mm slice thickness Intravenous contrast material has not been administered. Low dose protocols were performed. One or more of the following dose reduction techniques were used; automated exposure control, adjustment of the mA and/or KV according to patient size, use of iterative reconstruction technique. Findings: Cirrhosis, liver lobular in contour Distended gallbladder with mild increased density Spleen is not enlarged No pancreatic mass Indeterminate left adrenal mass 18 mm Small parapelvic renal cysts No renal calculi or ureteral calculi Abdominal aortic calcification no aneurysmal dilatation Normal appendix No bowel obstruction No diverticulitis Moderate stool in the rectum Normal seminal vesicles Prostate calcifications AP prostate dimension 4 cm 4 mm 1 mm bladder calculi Moderate lumbar spondylosis Moderate bilateral hip osteoarthritis IMPRESSION: Cirrhosis Distended gallbladder with mild increased density, recommend hepatobiliary sonography follow-up Indeterminate left adrenal mass, 18 mm, recommend MRI abdomen adrenal glands follow-up pre and postcontrast to exclude primary adrenal tumor versus adrenal metastasis Normal appendix No bowel obstruction Small bladder calculi
--- NOTE | 2024-09-19 09:56 | XR_ITS ---
Examination: CT cervical spine without contrast 2-D sagittal reconstructions 2-D coronal reconstructions 3-D reconstructions. Exam date and time:September 19, 2024 1019 hours INDICATIONS: Patient fell today with injury to the neck, neck pain CTDI:vol (mGy) 14 DLP: (mGycm) 377 Technique: Multiple 2 mm axial sections of the cervical spine have been obtained. The coronal and sagittal reconstructions have been obtained. 3-D reconstructions have been obtained. Low dose protocols were performed. One or more of the following dose reduction techniques were used; automated exposure control, adjustment of the mA and/or KV according to patient size, use of iterative reconstruction technique. Findings: Status post cervical stabilization extending with transpedicular screws to T1 Gross bone destruction involving the posterior left margin of C4 including the pedicle and the entire C5 vertebral body Small osteolytic area C6 Extensive laminectomy No acute fracture IMPRESSION: Status post extensive cervical stabilization Gross bone destruction involving posterior margin C4 and the entire C5 vertebral body MRI cervical spine post contrast follow-up would best assess full extent of tumor involvement of the cervical cord
[2024-09-19 10:35] LABS: Alanine Aminotransferase 27 U/L (10-49); Albumin, Serum 4.1 gm/dL (3.4-4.8); Alcohol, Blood Medical < 3.0 mg/dL (0-10.0); Alkaline Phosphatase 258 U/L (46-116); Anion Gap 9 (7-16); Aspartate Amino Transferase 76 U/L (0-34); BUN/Creatinine Ratio 24 Ratio (12-20); Bilirubin,Total 1.2 mg/dL (0.3-1.2); Blood Urea Nitrogen 17 mg/dL (9-23); Calcium 9.7 mg/dL (8.3-10.6); Calcium (Corrected) 9.7 mg/dL (8.5-10.1); Carbon Dioxide 20.7 mMol/L (20.0-31.0); Chloride 101 mMol/L (98-107); Creatinine (Component) 0.7 mg/dL (0.6-1.3); Estimated Creatinine Clearance 113.7 mL/min (>60); Globulin 4.2 gm/dL (2.3-3.5); Glucose 129 mg/dL (74-106); Osmolality,Calculated 266 (275-295); Potassium 4.9 mMol/L (3.4-5.1); Sodium 131 mMol/L (136-145); Total Protein 8.3 gm/dL (5.7-8.2); Troponin I < 0.020 ng/mL (0.0-0.045); eGFR > 60 See Note
[2024-09-19 11:20] LABS: Collection Type, Urine Catheter
[2024-09-19] MEDS: SODIUM CHLORIDE 0.9% 1000 ML 1,000 ML 999 ML IV (11:25)
[2024-09-19] MEDS: ONDANSETRON INJ 2 MG/ML INJ 2 ML 4 MG IV (11:27)
[2024-09-19] MEDS: MORPHINE SULF INJ 10 MG/ML VIAL 5 MG IVP (11:27)
[2024-09-19 11:40] LABS: Bilirubin,Urine Negative (Negative); Blood,Urine Negative (Negative); Clarity,Urine Clear (Clear/Hazy); Color,Urine Yellow (Lt Yel-Yel); Glucose, Urine Negative (Negative); Hyaline Casts,Urine < 1 /hpf (0-1); Ketones,Urine 1+ (Negative); Leukocyte Esterase,Urine Negative (Negative); Nitrite,Urine Negative (Negative); PH,Urine 5.5 (5.0-7.0); Protein,Urine Trace (Neg - Trace); RBC,Urine 11 /hpf (0-3); Specific Gravity,Urine 1.024 (1.001-1.035); Squamous Epithelial Cell,Urine 1 /hpf (0-5); WBC,Urine 7 /hpf (0-5)
[2024-09-19 11:50] LABS: Amphetamine/Methamp Scrn,U Negative (Negative); Barbiturate Screen,Urine Negative (Negative); Benzodiazepines Screen,Urine Negative (Negative); Benzoylecgonine Screen, Ur Negative (Negative); Fentanyl Screen,Urine Negative (Negative); Opiate Screen,Urine Negative (Negative); THC Screen,Urine Negative (Negative)
--- NOTE | 2024-09-19 15:53 | PC.CC ---
Brandon LAYTON was consulted by Dr. Araujo regarding patient and discharge plan. Dorota LAYTON made telephone contact with patient's , Karine Edwards . She she reports patient is receiving cancer treatment at [facility] and he has only had one treatment. She provides care for the patient at home and has a home health aide for 18 hours a week from the [place]. Per , she recently was able to get a hospital bed for the patient. does not want patient to go to a SNF as she does not want him to feel abandoned. Dr. Araujo followed up with ASW and informed there is nothing to admit the patient medically for. ASW made telephone contact with and provided update information of patient being discharged. Patient's discussed transportation with [facility] and reports she cannot medicinal plant picker the patient as she does not have a vehicle. ASW inquired if she could pay for transportation in which she responded she could not as she does not have the means to. ASW made contact with [facility] who reports they do not have anymore available gurneys to transport the patient back home. KINJAL obtained a CATE from flat sorter processor Sara as a one time courtesy.
== END 2024-09-19 18:20 | disposition home or self-care (01) ==
PROVIDERS: Nurse Practitioner Family; Emergency Provider Emergency Medicine; PCP Specialist
DX: R41.82 Altered mental status, unspecified (principal); C79.51 Secondary malignant neoplasm of bone; C22.0 Liver cell carcinoma; M25.511 Pain in right shoulder; M54.2 Cervicalgia; G47.00 Insomnia, unspecified
CPT/HCPCS: 51701; 36415; 36600; 70450; 72125; 74176; 80053; 80307; 80320; 81001; 82140; 82803; 83735; 84484; 85025; 85610; 85730; 87040; 87086; 87400; 87811; 93005; 96361; 96374; 96375; 99284; J2270; J2405; J7030; G0480

== ENCOUNTER 2024-09-27 02:01 | Inpatient (IN) | payer OTHER, SELFPAY ==
[2024-09-27] VITALS (14 sets, daily range): BP systolic 115–152; BP diastolic 56–89; PULSE 63–92; RESP 12–25; TEMP 36.2–37.4; O2SAT 94–100; BMI 30.7
--- NOTE | 2024-09-27 03:17 | PD.EDSOB ---
ED SOB =RME/HPI General Chief Complaint: Shortness of Breath/Dyspnea Stated Complaint: SOB Time Seen by Provider: 09/27/24 02:57 Arrival date/time: 09/27/24 02:01 RME / HPI RME / HPI Narrative: Dr. Leung?s Main ED Evaluation: 74yo male with a history of metastatic HCC on chemo via IV, HTN, DM, and neuropathy BIBA from home presents to the ED for a chief complaint of shortness of breath. Patient states he's been having a productive cough that has been progressively getting worse. He reports he started feeling short of breath tonight, so he came in for evaluation. No fever, chills or any other symptoms reported. No known allergies. Related Data Home Medications ?Medication ?Instructions ?Recorded ?Confirmed gabapentin 100 mg tablet 100 mg PO Q8H 06/29/24 06/29/24 lidocaine 5 % topical patch 1 patch topical QDAY 06/29/24 06/29/24 methocarbamol 500 mg tablet 500 mg PO QID PRN Pain 06/29/24 06/29/24 sodium chloride 1 gram tablet 1,000 mg PO QID hypotension 06/29/24 06/29/24 Allergies Allergy/AdvReac Type Severity Reaction Status Date / Time No Known Allergies Allergy Verified 06/29/24 14:28 Review of Systems Review of Systems Systems Reviewed: All systems reviewed, normal except as documented ED Exam Narrative Physical exam: GENERAL APPEARANCE: alert and oriented x 4, well-developed, well-nourished, speaks 3-4 word answers, in [id number] respiratory distress VITALS: All vitals were reviewed and the pulse ox is 96% on 3L/NC, which is baseline according to my interpretation. HEENT: Normocephalic, atraumatic; pupils equal, round, reactive to light; EOMI; mucous membranes pink, moist; oropharynx clear NECK: Supple LUNGS: Coarse breath sounds throughout; no wheezes, no rales, no rhonchi; tachypneic HEART: Regular rate, regular rhythm; normal S1, S2; no murmurs ABDOMEN: non distended; normal BS; soft, no tenderness, no guarding, no rebound; no masses, no organomegaly, no hernia BACK: no CVA tenderness EXTREMITIES: atraumatic; no edema NEUROLOGIC: awake; alert and oriented x4; cranial nerves II-XII grossly intact; no focal sensory or motor deficits PSYCHIATRIC: appropriate mood and affect SKIN: warm, dry, normal color; no rashes Course Course Course Narrative: CXR is ordered for determining the etiology of shortness of breath. Quality Measures none Orders Category Date Time Status CT Screening NOW Care 09/27/24 04:21 Active Speech Language Pathologist Prn STAT Care 09/27/24 03:22 Active Continuous Pulse Oximetry STAT Care 09/27/24 03:22 Completed EKG (ED ONLY) *Do not use* NOW Care 09/27/24 03:20 Completed In and Out Catheter X1PRN Care 09/27/24 03:22 Completed Insert IV NOW Care 09/27/24 03:20 Active NPO STAT Care 09/27/24 03:22 Active Strict Intake and Output Routine Care 09/27/24 03:[address] angio chest Stat Exams 09/27/24 04:21 Taken EKG (ED Only) Stat Exams 09/27/24 03:20 Ordered XR chest 1V portable Stat Exams 09/27/24 03:20 Taken Arterial Blood Gas Stat Lab 09/27/24 04:15 Completed B-Type Natriuretic Peptide Stat Lab 09/27/24 03:36 Completed Blood Culture (Lab) Stat Lab 09/27/24 03:36 Received CBC Stat Lab 09/27/24 03:36 Completed Comprehensive Metabolic Panel Stat Lab 09/27/24 03:36 Completed LDH (Lactate Dehydrogenase) Stat Lab 09/27/24 03:36 Completed Lactate (Lactic Acid) Stat Lab 09/27/24 03:36 Completed Lipase Stat Lab 09/27/24 03:36 Completed Magnesium Stat Lab 09/27/24 03:36 Completed Partial Thromboplastin Time Stat Lab 09/27/24 03:36 Completed Phosphorous Stat Lab 09/27/24 03:36 Completed Procalcitonin Stat Lab 09/27/24 03:36 Completed Prolactin* Stat Lab 09/27/24 03:36 Received Prothrombin Time with INR Stat Lab 09/27/24 03:36 Completed Troponin I Stat Lab 09/27/24 03:36 Completed Urinalysis Stat Lab 09/27/24 03:48 Completed Urine Culture Stat Lab 09/27/24 03:22 Received Albuterol/Ipratr Rt Adrienne [Duoneb Rt Adrienne] Med 09/27/24 03:23 Discontinued 3 ml INH X1 ONE Piper/Tazo Inj [Zosyn Inj] 3.375 gm Med 09/27/24 03:24 Discontinued SODIUM CHLORIDE 0.9% (Popper) [NS 0.9% (Popper)] 50 ml IV X1 Sodium Chloride 0.9% 500 ml [Ns] 500 ml Med 09/27/24 03:24 Discontinued IV 999 mls/hr Oxygen Delivery NOW RT 09/27/24 03:20 Active Vital Signs Vital signs: Vital Signs Temperature 98 F 09/27/24 02:13 Pulse Rate 82 09/27/24 02:13 Respiratory Rate 19 09/27/24 02:13 Blood Pressure 144/83 H 09/27/24 02:13 Pulse Oximetry (%) 96 09/27/24 02:13 Oxygen Delivery Method Room Air 09/27/24 02:13 Shortness of Breath / Dyspnea MDM Narrative MDM Narrative:: Scribe Attestation: 09/27/24 - Brianna Holloway am scribing for and in the presence of Dr. Leung. Patient data External records reviewed:: [facility] [place] previous records (Per chart review, patient was seen here on 09/19/24 for AMS.) Clinical information provided by:: patient Social determinants that could affect healthcare access:: none Patient has the following chronic illnesses:: Metastatic HCC on chemo via IV, hypertension, DM, and neuropathy How is presenting disease/condition affected by chronic disease/condition?: caused by Evaluation data The following diagnostics were reviewed and interpreted by me:: lab results, radiology exam(s) and EKG tracing(s) Lab and/or radiology exams considered but not ordered:: none Interpretation Summary: CBC is normal, Lactic Acid is normal, Troponin is normal, BNP is normal, Procalcitonin is elevated at 0.72, UA is unremarkable, according to my interpretation. CXR shows neck hardware in place, no fractures, sharp costophrenic angles, normal diaphragmatic edge, right chest wall mass, somewhat widened mediastinum, chronic changes, no infiltrates, according to my interpretation. EKG done at 0307, NSR, rate of 80, normal axis, no ectopy, LBBB, no acute ischemia, similar to previous EKG done on 09/19/24. Medications / Prescriptions Medications or Prescriptions considered but not ordered:: none Medication administrations:: Medication Administration History Discontinued Medications Albuterol/Ipratropium (Albuterol/Ipratropium (Duoneb) Rt Adrienne 3 Ml Nebu) 3 ml INH X1 ONE Stop: 09/27/24 03:24 Last Admin: 09/27/24 04:01 Dose: 3 ml Documented By: TAMANNA Piperacillin Sod/Tazobactam (Sod 3.375 gm/ Sodium Chloride) 50 mls @ 100 mls/hr IV X1 ONE Stop: 09/27/24 03:53 Last Infusion: 09/27/24 04:23 Dose: Infused Documented By: Admin: 09/27/24 03:40 Dose: 100 mls/hr Documented By: ARIS Sodium Chloride (Ns) 500 mls @ 999 mls/hr IV .Q31M ONE Stop: 09/27/24 03:54 Last Infusion: 09/27/24 04:23 Dose: Infused Documented By: Admin: 09/27/24 03:40 Dose: 999 mls/hr Documented By: ARIS see above Consultations Consultation(s) initiated? (list below): No Diagnosis Shortness of Breath Differential Diagnosis: community acquired pneumonia, pulmonary embolism and other (pneumothorax, pulmonary effusion) Most likely diagnosis given after review of the tests above:: final dx pending CTA at signout Admission Indicated Admission indicated?: not indicated Admission Request Was there a request for admission?: No Disposition Plan Disposition Plan: other (specify) (Signed out to Dr. Mata at 0600 pending CTA of the chest.) Discharge Plan Prescriptions/Referrals Prescriptions/Med Rec: No Action methocarbamol 500 mg Tablet 500 mg PO QID PRN (Reason: Pain) Rx Instructions: 1.5 tab PO 4x day prn sodium chloride 1 gram Tablet 1,000 mg PO QID Rx Instructions: 1gm tab-take 2 tablets PO 4x a day lidocaine 5 % Adhesive Patch,Medicated 1 patch TOPICAL QDAY Rx Instructions: leave on most painful area for up to 12 hrs. (off 12 hrs, on 12 hrs) gabapentin 100 mg Tablet 100 mg PO Q8H Referrals: Alek Smart MD [Primary Care Provider] - In 1 week Problem List Clinical Impression: Shortness of breath Patient/Caregiver Discharge Instructions Print Language: Bulgarian
--- NOTE | 2024-09-27 03:20 | XR_ITS ---
Examination: AP chest single view Technique one AP portable semiupright chest single view Exam date and time: SOB dyspnea today. diagnosis multiple myeloma Exam date and time: September 27, 2024 0327 hrs. Findings: 8 cm pleural-based pulmonary mass right upper lobe, with possible partial destruction right third rib posteriorly and fourth rib posteriorly Right internal jugular Port-A-Cath tip right atrium Normal heart size Normal interval pneumonia or pulmonary edema Prominent osteopenia Impression: 8 cm pulmonary mass right upper lobe
[2024-09-27] MEDS: SODIUM CHLORIDE 0.9% 500 ML 500 ML 999 ML IV (03:40)
[2024-09-27] MEDS: PIPER/TAZO INJ 3.375 GM in SODIUM CHLORIDE 0.9% (Popper) 50 ML IV (03:40)
[2024-09-27 03:42] LABS: Lactate (Lactic Acid) 1.3 mMol/L (0.4-2.0)
[2024-09-27 03:51] LABS: Collection Type, Urine Clean Catch
[2024-09-27 03:56] LABS: Basophils # (Auto) 0.1 Thou/mm3 (0.0-0.2); Basophils % (Auto) 1 % (0-2.5); Eosinophils # (Auto) 0.4 Thou/mm3 (0.0-0.5); Eosinophils % (Auto) 5 % (0-10); Hematocrit 42.1 % (41.0-53.0); Hemoglobin 14.2 g/dL (13.5-16.0); Immature Granulocytes % (Auto) 1 % (0-0); Immature Granulocytes Auto 0.05 Thou/mm3 (0.00-0.00); Lymphocytes # (Auto) 1.7 Thou/mm3 (1.0-4.8); Lymphocytes % (Auto) 18 % (10-50); Mean Corpuscular HGB Conc 33.7 g/dl (31.0-37.0); Mean Corpuscular Hemoglobin 28.3 pg (25.0-35.0); Mean Corpuscular Volume 84 fL (80-100); Monocytes # (Auto) 0.7 Thou/mm3 (0.0-0.8); Monocytes % (Auto) 8 % (0-12); Neutrophils # (Auto) 6.2 Thou/mm3 (1.8-7.7); Neutrophils % (Auto) 68 % (37-80); Nucleated Red Blood Cell % 0 /100 WBC (0); Platelet Count 355 Thou/mm3 (140-440); RDW Standard Deviation 50.8 fL (35.1-43.9); Red Blood Count 5.01 Miln/mm3 (4.50-5.90); White Blood Count 9.1 Thou/mm3 (3.8-10.6)
[2024-09-27 04:01] LABS: B-Type Natriuretic Peptide 37 pg/mL (0-100)
[2024-09-27] MEDS: ALBUTEROL/IPRATROPIUM (Duoneb) RT SOL 3 ML NEBU INH ×5 (04:01→22:58)
[2024-09-27 04:02] LABS: INR 1.2 (0.9-1.3); Partial Thromboplastin Time 35.6 Seconds (22.0-36.0)
[2024-09-27 04:05] LABS: Bilirubin,Urine Negative (Negative); Blood,Urine Negative (Negative); Clarity,Urine Clear (Clear/Hazy); Color,Urine Yellow (Lt Yel-Yel); Glucose, Urine Negative (Negative); Ketones,Urine Trace (Negative); Leukocyte Esterase,Urine Negative (Negative); Nitrite,Urine Negative (Negative); PH,Urine 5.5 (5.0-7.0); Protein,Urine Negative (Neg - Trace); RBC,Urine 7 /hpf (0-3); Specific Gravity,Urine 1.028 (1.001-1.035); Squamous Epithelial Cell,Urine < 1 /hpf (0-5); WBC,Urine 2 /hpf (0-5)
[2024-09-27 04:08] LABS: Alanine Aminotransferase 23 U/L (10-49); Albumin, Serum 3.6 gm/dL (3.4-4.8); Alkaline Phosphatase 194 U/L (46-116); Anion Gap 10 (7-16); Aspartate Amino Transferase 87 U/L (0-34); BUN/Creatinine Ratio 38 Ratio (12-20); Blood Urea Nitrogen 19 mg/dL (9-23); Calcium 8.9 mg/dL (8.3-10.6); Calcium (Corrected) 9.2 mg/dL (8.5-10.1); Carbon Dioxide 22.9 mMol/L (20.0-31.0); Chloride 102 mMol/L (98-107); Creatinine (Component) 0.5 mg/dL (0.6-1.3); Estimated Creatinine Clearance 158.4 mL/min (>60); Globulin 3.7 gm/dL (2.3-3.5); Glucose 97 mg/dL (74-106); LDH (Lactate Dehydrogenase) 214 U/L (120-246); Lipase 27 U/L (12-53); Magnesium 2.2 mg/dL (1.6-2.6); Osmolality,Calculated 272 (275-295); Phosphorous 3.7 mg/dL (2.4-5.1); Potassium 4.2 mMol/L (3.4-5.1); Sodium 135 mMol/L (136-145); Total Protein 7.3 gm/dL (5.7-8.2); Troponin I < 0.020 ng/mL (0.0-0.045); eGFR > 60 See Note
[2024-09-27 04:09] LABS: Procalcitonin 0.72 ng/ml (0.0-0.49)
--- NOTE | 2024-09-27 04:21 | XR_ITS ---
Examination: CTA chest with intravenous contrast 2-D reconstructions 3-D reconstructions, vascular Date and time of exam: September 27, 2024 0501 hrs. Indications: Shortness of breath dyspnea today, diagnosis multiple myeloma CTDI: vol (mGy) 26.06 DLP: (mGycm) 619 Technique: Multiple axial sections of the thorax have been obtained. 3 mm slice thickness, from below the hemidiaphragms to above the apices of the lungs. Mediastinal and lung density settings have been obtained. 2-D sagittal and coronal reconstructions. 3-D angiographic renderings, 3-D volume renderings, 3D post processing, vascular maximum intensity projections obtained. Contrast administered is 100 cc Isovue-370. Low dose protocols were performed. One or more of the following dose reduction techniques were used; automated exposure control, adjustment of the mA and/or KV according to patient size, use of iterative reconstruction technique. Findings: Left-sided ill-defined soft tissue mass lateral to C7 with cortical bone destruction involving the C7 No thoracic aortic aneurysm dilatation Pulmonary artery segments are not enlarged No pulmonary artery emboli Bilateral subcentimeter pulmonary nodules No paratracheal tracheobronchial or bronchopulmonary adenopathy Large soft tissue mass destroying the right third rib (7 x 7 x 7.5 cm Mildly dilated bronchi in the lower lung zones Atelectasis versus small foci or pneumonia both lung bases Cirrhosis, liver nodular in contour Distended gallbladder Spleen not enlarged No pancreatic mass No hydronephrosis Impression: Poorly defined soft tissue mass lateral on the left side to C7, recommend CT scan cervical spine without intravenous contrast follow-up Large soft tissue mass destroying the right third rib, 7 x 7 x 7.5 cm Atelectasis versus mild pneumonia both lung bases Cirrhosis Distended gallbladder, recommend hepatobiliary sonography follow-up
[2024-09-27 04:26] LABS: Base Excess -1 (-3-3); HCO3 24 mEq/L (20-26); O2 Saturation 99 % (91-98); PCO2 37 mmHg (32.0-48.0); PO2 102 mmHg (83-108); pH, Arterial 7.42 (7.35-7.45)
[2024-09-27 04:30] LABS: Allen Test Performed/OK; Inspired O2, VO2 Liters 3 L/min; Puncture Site Right Radial
--- NOTE | 2024-09-27 05:33 | PRELIM_ITS ---
CT angiogram of the chest with intravenous contrast (axial sections with sagittal and coronal reformats) September 27, 2024 at 0501 hours Clinical History: Dyspnea. Technique:Helical axial sections with sagittal and coronal reformats of the chest were obtained with intravenous contrast. Iterative reconstruction technique was employed to reduce patient radiation exposure. 3D/MIP reconstructed images were also provided. Comparison: None available at the time of this report. Findings: There is no filling defect within the pulmonary artery divisions to suggest pulmonary thromboembolism. The mediastinum demonstrates no evidence of mass or lymphadenopathy. The thoracic aorta is unremarkable. There is no pericardial effusion. Degenerative changes of the imaged portions of the spine. No acute fractures. No evidence of pleural effusion or pneumothorax. 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 Right anterior chest wall Port-A-Cath with a distal tip at the superior cavoatrial junction. Small consolidation at the lung bases, atelectasis versus small foci of pneumonia. Cervical spine hardware noted. Irregular liver margins. Bilateral adrenal glands nodules, the largest to the left measures 1.8 cm. Distended gallbladder. Impression: 1. No CT evidence of pulmonary thromboembolism. 2. 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 3. Degenerative changes of the imaged portions of the spine. No acute fractures. 4. Cirrhosis. Further evaluation to assess for hepatocellular carcinoma is recommended. 5. Bilateral adrenal nodules, further evaluation for characterization is recommended, differential diagnosis includes metastasis. 6. Small consolidation at the lung bases, atelectasis versus small foci of pneumonia. Report Electronically Signed By: Suman Vela 09/27/2024 5:33:24 AM [EST]
--- NOTE | 2024-09-27 06:22 | EDNOTE_ITS ---
Emergency Room Addendum <Carlota Sousa MD - Last Filed: 09/27/24 08:31> Addendum Narrative: 0600: Care assumed from Dr. Leung, the previous shift emergency physician. Past medical, surgical, social and family history reviewed. Vitals and home medications reviewed. Results and treatment plan discussed. I will assume the care of the patient at this time and will follow the patient. Please refer to the emergency department record for history and examination from initial visit. Patient seen and examined this morning. The patient has known history of metastatic hepatocellular carcinoma and has been followed by Dr. Smart at the [facility] since 06/2024. He had decompression of C3-C6 for a soft tumor mass that was initially found with C2-T1 fusion on 05/12/2024. There are known metastases to the anterior right third rib with extension into the soft tissue. On exam the patient is very lethargic initially with a GCS of about 11 and snoring, on 3L of O2. Patient was able to be woken with repeated prompting and appears to be expressing significant pain in his neck. A CTA chest was done on this visit which ruled out PE as a cause for acute hypoxic respiratory failure. The patient has a normal WBC but slightly elevated procalcitonin at 0.72 and there is some suspicion that the patient may be having obstructive pneumonia secondary to the mass, a dose of Zosyn was given here in the ED. ABG was normal with pH 7.42, pCO2 37, pO2 102, less likely hypercapnia as a cause for somnolence. Other causes for hypersomnolence were considered including possible hepatic encephalopathy, however patient does not have any clinical examination findings suggestive of decompensated liver cirrhosis overall, with lack of asterixis, lack of portal hypertensive findings. Ammonia level drawn a week ago was 25. Overall, the patient would benefit from admission for treatment of obst ructive pneumonia as he does have some level of acute hypoxic respiratory failure requiring a minimal amount of supplemental oxygen. He also needs to be started on palliative treatment as the patient expresses significant uncontrolled pain in the neck. 0810: Discussed patient with hospitalist Team A Dr. Diaz with attending Dr. Shelton, will come evaluate the patient for admission. Patient plan of care discussed with attending ED physician Dr. Mata. Carlota Sousa PGY-2 Attestation <Cesar Mata MD - Last Filed: 10/06/24 14:06> MD Attestation The patient was seen by the PGY 2. I, the supervising physician, also encountered and examined the patient and remained present during the entire ER visit. With the PGY 2 we formulated the encounter, workup, management, treatment, and medical decision making. I agree with the plan and documentation.
[2024-09-27] MEDS: MORPHINE SULF INJ 10 MG/ML VIAL 4 MG IVP (08:35)
[2024-09-27] MEDS: DOXYCYCLINE INJ 100 MG in SODIUM CHLORIDE 0.9% (P) 100 ML IV ×2 (10:31→20:13)
[2024-09-27] MEDS: SODIUM CHLORIDE 0.9% 1000 ML 1,000 ML 80 ML IV (10:31)
--- NOTE | 2024-09-27 11:13 | ESHP_ITS ---
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 Patient is bedbound. CT imaging of the chest showed a large left-sided tissue mass and mass on the right rib with infiltrates. Imaging results were explained to the family and given his poor prognosis, patient and family are interested in their options with hospice. Will follow up with patient's oncologist and have goals of discussion tomorrow morning. Until then, will treat patient with IV antibiotics for post-obstructive pneumonia. Tawana Diaz MD PGY-3 Documentation for date of: 09/27/24 HPI History of Present Illness Chief complaint: SOB, cough History of present illness: 74-year-old male with past medical history of liver cancer with metastasis to the bones and prediabetes was admitted to the hospital on 09/27/2024 after coming to the ED with increased shortness of breath. During assessment patient's Karine was at bedside and provided most of the history given that the patient was very somnolent and was only alert and oriented to self. Most of the history was taken from the who stated that patient has been having progressive decline for the past few months and since May he has been immobile and bedridden. She also mentioned that he has been his around 2 chemotherapy sections in the past 2 months as well. She states that the patient has episodes where he does not sleep and not sleeps all day and has been having a lot of pain. On assessment patient looked in a lot of pain and having dry cough. Given his poor prognosis discussed with the patient and his about the option of hospice at this time given patient's decline over the past few months and how much pain he is in. Patient's stated that he had talked about hospice around 2 weeks ago with the patient's brother whom she contacted during assessment and wanted to know what the patient's condition was at this time. At this time patient and the further stated that they would like to pursue hospice, but would like to discuss it tomorrow at 9 AM. Patient's made the patient DNR/DNI as being full code with cause more complications and suffering for the patient at this time. Will try and speak with the patient's oncologist about the patient's current prognosis. Will have goals of care discussion again tomorrow at 9 AM and family will decide if they would like to pursue hospice tomorrow. ED course: Initially came in afebrile and mildly hypertensive. Initial labs were relevant minor transaminitis with AST 87 and alkaline phosphatase 194 as well as an elevated procalcitonin at 0.72. Initial imaging included chest x-ray which showed a 8 cm pulmonary mass of the right upper lobe and chest CTA showed soft tissue mass on the lateral left side of C7, large soft tissue mass destroying the right third rib, atelectasis versus pneumonia, cirrhosis, and distended gallbladder. PMH: As above FMH: Mother had pancreatic cancer Medications: None as per patient's Allergies: NKDA Review of Systems Review of Systems ROS Unobtainable: unobtainable due to mental status Past Medical History Past Medical History CARDIAC: Positive Cardiac Disorders, Cardiac Arrhythmia, Hypertension and Hypotension GASTROINTESTINAL: Positive Cirrhosis MUSCULOSKELETAL: Positive Musculoskeletal Disorders (cannot lift left shoulder; weakness use wheelchair and walker for mobility) and Arthritis OTHER HISTORY: Positive Cancer (hepatocellular carcinoma (liver)) Social History SMOKING STATUS: Never smoker SUBSTANCE USE: does not use ALCOHOL: Never Exam Vital Signs Temp Pulse Resp BP Pulse Ox O2 Del Method O2 Flow Rate 98.0 F 76 12 126/77 99 Nasal Cannula 1 09/27/24 10:00 09/27/24 10:31 09/27/24 10:31 09/27/24 10:00 09/27/24 10:31 09/27/24 10:00 09/27/24 10:31 Narrative Exam Physical exam limited due to patient's mental status General: A/O x1 only to person, ill-appearing Eyes: PERRL, EOMI. Anicteric, vision grossly intact. Ears: No ear pain, no ear discharge, Hearing grossly intact. Nose: No nasal discharge. Mouth/Throat: Dry mucous membranes, no redness, no lesions. Neck: Neck supple, non-tender, no cervical lymphadenopathy. Lungs: Coarse crackles bilaterally, No accessory muscle use. Cardio: Normal S1/S2, regular rhythm, no murmurs, no JVD Abdomen: Soft, non-tender, no palpable masses, peristalsis present, no guarding or rebound. Extremities: Symmetrical, no significant deformities, 1+ peripheral edema , 1+ bilateral upper extremity swelling non-tender, peripheral pulses presents. Skin: No rashes, no lesions, warm to touch. Neuro: Able to follow commands, but inability to move bilateral upper extremities and bilateral lower extremities strength 2/5, AO x 1 only to person Results: Labs 09/27/24 03:36 09/27/24 03:36 Labs: Short CBC 09/27/24 Range/Units 03:36 WBC 9.1 (3.8-10.6) Thou/mm3 Hgb 14.2 (13.5-16.0) g/dL Hct 42.1 (41.0-53.0) % Plt Count 355 D (140-440) Thou/mm3 BMP 09/27/24 03:36 Sodium 135 L Potassium 4.2 Chloride 102 Carbon Dioxide 22.9 BUN 19 Creatinine 0.5 L Glucose 97 Calcium 8.9 Cardiac Enzymes 09/27/24 Range/Units 03:36 Troponin I < 0.020 (0.0-0.045) ng/mL Liver Function 09/27/24 Range/Units 03:36 Total Bilirubin 1.0 (0.3-1.2) mg/dL AST 87 H (0-34) U/L ALT 23 (10-49) U/L Alkaline Phosphatase 194 H (46-116) U/L Albumin 3.6 (3.4-4.8) gm/dL Urine 09/27/24 Range/Units 03:48 Urine Color Yellow (Lt Yel-Yel) Urine Clarity Clear (Clear/Hazy) Urine pH 5.5 (5.0-7.0) Ur Specific Otis 1.028 (1.001-1.035) Urine Protein Negative (Neg - Trace) Urine Glucose (UA) Negative (Negative) ABG Interpretation ABG results: 09/27/24 04:15 ABG pH 7.42 ABG pCO2 37 ABG pO2 102 ABG HCO3 24 ABG O2 Saturation 99 H ABG Base Excess -1 Quality Measures Quality Measures none Advance care planning discussed with:: patient and spouse Medications Home Medications and Allergies Home Medications ?Medication ?Instructions ?Recorded ?Confirmed ?Type gabapentin 100 mg tablet 100 mg PO Q8H 06/29/2406/29 History lidocaine 5 % topical patch 1 patch topical QDAY 06/2906/29/24 History methocarbamol 500 mg tablet 500 mg PO QID PRN Pain 06/29/24 History sodium chloride 1 gram tablet 1,000 mg PO QID hypotens ion 06/29/24 06/29/24 History Allergies Allergy/AdvReac Type Severity Reaction Status Date / Time No Known Allergies Allergy Verified 06/29/24 14:28 Visit Medications Acetaminophen (Acetaminophen 325 Mg Tablet) 650 mg PO Q6H PRN PRN Reason: pain(1-3) and Fever >100.4 Stop: 10/27/24 09:39 Hydrocodone Bitart/Acetaminophen (Hydrocodone/Apap 5/325 Tablet) 1 tab PO Q4HR PRN PRN Reason: PAIN SCALE 4-6 (Moderate Stop: 10/02/24 09:39 Albuterol/Ipratropium (Albuterol/Ipratropium (Duoneb) Rt Adrienne 3 Ml Nebu) 3 ml INH Q4HRRT [facility] Stop: 10/27/24 10:59 Last Admin: 09/27/24 10:28 Dose: 3 ml Enoxaparin Sodium (Enoxaparin Sod Inj 40 Mg/0.4 Ml Syringe) 40 mg SC QDAY [facility] Stop: 10/12/24 08:59 Doxycycline Hyclate 100 mg/ (Sodium Chloride) 100 mls @ 100 mls/hr IV BID [facility] Stop: 10/04/24 09:59 Last Admin: 09/27/24 10:31 Dose: 100 mls/hr Sodium Chloride (Ns) 1,000 mls @ 80 mls/hr IV .[id number] [facility] Stop: 09/27/24 22:14 Last Admin: 09/27/24 10:31 Dose: 80 mls/hr Piperacillin Sod/Tazobactam (Sod 4.5 gm/ Sodium Chloride) 100 mls @ 25 mls/hr IV Q8HR [facility] Stop: 10/04/24 13:59 Morphine Sulfate (Morphine Sulf Inj 10 Mg/Ml Vial) 1 mg IVP Q2H PRN PRN Reason: PAIN SCALE 7-10 (Severe Stop: 10/02/24 09:39 Ondansetron HCl (Ondansetron Inj 2 Mg/Ml Inj 2 Ml) 4 mg IV Q6H PRN; Protocol PRN Reason: NAUSEA OR VOMITING Stop: 10/27/24 09:39 Discontinued Medications Albuterol/Ipratropium (Albuterol/Ipratropium (Duoneb) Rt Adrienne 3 Ml Nebu) 3 ml INH X1 ONE Stop: 09/27/24 03:24 Last Admin: 09/27/24 04:01 Dose: 3 ml Piperacillin Sod/Tazobactam (Sod 3.375 gm/ Sodium Chloride) 50 mls @ 100 mls/hr IV X1 ONE Stop: 09/27/24 03:53 Last Infusion: 09/27/24 04:23 Dose: Infused Sodium Chloride (Ns) 500 mls @ 999 mls/hr IV .Q31M ONE Stop: 09/27/24 03:54 Last Infusion: 09/27/24 04:23 Dose: Infused Morphine Sulfate (Morphine Sulf Inj 10 Mg/Ml Vial) 4 mg IVP X1 ONE Stop: 09/27/24 08:04 Last Admin: 09/27/24 08:35 Dose: 4 mg Assessment & Plan Plan 74-year-old male with past medical history of liver cancer with metastasis to the bones and prediabetes was admitted to the hospital on 09/27/2024 due to obstructive pneumonia mostly in the setting of metastatic liver cancer. 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 ? Patient's stated that patient has been bed ridden since May due to metastasis and that he has no function of his arms. ? Patient has stage IV liver cancer and follows up outpatient with oncologist, but has missed some chemotherapy. ?When patient came in he was very somnolent and was only alert oriented to his name. ? Chest x-ray showed 8 cm pulmonary mass of the right upper lobe ? Chest CTA showed poorly defined soft tissue mass in left side C7, large soft tissue mass on the right third rib, atelectasis versus pneumonia - Family deciding if they would like to go with hospice tomorrow at 9am. Plan: ? Start patient on Zosyn and doxycycline [09/27/2024?] ? Pain management with morphine 1 mg every 2 hours and Toradol 15 mg every 6 hours ?Protonix ?Continue IV fluids ?Blood cultures and urine cultures pending ? Will continue to monitor Disposition: Patient admitted to med surg for obstructive PNA 2/2 malignancy, continue abx, family to decide on hospice . Diet: NPO GI prophylaxis: protonix DVT prophylaxis: lovenox Code: DNR Case disclosed with Attending Dr. Shelton and My senior Dr. Diaz PGY3. Beto Quesada PGY1 Attending Provider Attestation/Addendum I reviewed labs, imaging, EKG, home medications and prior available records. Face to face evaluation was performed by me. I have personally examined the patient and discussed assessment and plan with the IM team. I reviewed the resident note and agree with the plan with exceptions as below. Hepatocellular carcinoma Lung mass Cervical spine metastasis Dyspnea on exertion Bilateral pneumonia Liver cirrhosis Goals of care discussion/counseling Patient's symptoms are likely related to the large lung mass that is invading the ribs IV morphine as needed for severe pain IV hydration Empiric treatment of pneumonia: IV Zosyn and doxycycline Patient is a hospice candidate: Discussed with oncologist. Will plan for family meeting on 09/28
--- NOTE | 2024-09-27 11:54 | PC.NURSE ---
Report given to Danica CHURCH
--- NOTE | 2024-09-27 12:06 | PC.SS ---
Addendum entered by ZEESHAN Lamas 09/27/24 12:17: Next of kin: , Karine Edwards D/c plan: Pending possible Hospice Original Note: Initial assessment: this is 74 year old male admitted for SOB and obstructive PNA metastatic liver cancer. The patient currently unable to complete assessment. Patient's , Karine Edwards to assist with providing information. The patient's demographic information was confirmed. The patient lives at home with spouse and daughter. The patient's emergency contact is , Karine. The patient requires assistance with completing ADL's. Patient has wheelchair and walker at home. Patient has been bed bound/wheelchair bound per spouse for the last few days and patient experiencing neck pain. The patient is followed by Dr. Saba from the [facility] in [place], [place]. The patient also [facility]. Patient was receiving chemotherapy. The patient is not on dialysis and does not have home oxygen. The discharge plan was discussed and the patient's informed she is considering hospice services for the patient, preferred hospice agency is [facility]. However, patient's would like to discuss with the patient's family regarding making that decision. Patient's sister contact: Danica Levinford and patient's brother: Dashawn Soledad . Patient is being admitted to medsurge floors at this time.
[2024-09-27] MEDS: PIPER/TAZO INJ 4.5 GM in SODIUM CHLORIDE 0.9% (P) 100 ML IV ×2 (15:06→21:37)
[2024-09-27] MEDS: PANTOPRAZOLE INJ 40 MG VIAL IVP (15:07)
--- NOTE | 2024-09-27 15:41 | PC.SS ---
SS follow up note; SS met with patient's , Karine and informed her that The Dr's would like to conduct a goals of care meeting for tomorrow at 9AM. Karine verbalized understanding. Patient's reported that at the time she does not know if she would like Hospice services for patient, however if family does decide on hospice services, ther preferred hospice agency is [facility]. Patient's , Karine reported she would like to discuss furthermore about hospice tomorrow, SS verbalized understanding. SS will stand by for further needs.
[2024-09-27] MEDS: KETOROLAC INJ 30 MG/ML VIAL 15 MG IVP (17:26)
[2024-09-28] VITALS (9 sets, daily range): BP systolic 114–166; BP diastolic 52–90; PULSE 79–105; RESP 8–24; TEMP 36.1–37.1; O2SAT 95–100
[2024-09-28] MEDS: ALBUTEROL/IPRATROPIUM (Duoneb) RT SOL 3 ML NEBU INH ×4 (02:49→14:41)
[2024-09-28 05:05] LABS: Basophils # (Auto) 0.1 Thou/mm3 (0.0-0.2); Basophils % (Auto) 1 % (0-2.5); Eosinophils # (Auto) 0.5 Thou/mm3 (0.0-0.5); Eosinophils % (Auto) 7 % (0-10); Hematocrit 38.9 % (41.0-53.0); Hemoglobin 12.7 g/dL (13.5-16.0); Immature Granulocytes % (Auto) 1 % (0-0); Immature Granulocytes Auto 0.05 Thou/mm3 (0.00-0.00); Lymphocytes % (Auto) 13 % (10-50); Mean Corpuscular HGB Conc 32.6 g/dl (31.0-37.0); Mean Corpuscular Hemoglobin 28.6 pg (25.0-35.0); Mean Corpuscular Volume 88 fL (80-100); Monocytes # (Auto) 0.6 Thou/mm3 (0.0-0.8); Monocytes % (Auto) 8 % (0-12); Neutrophils # (Auto) 5.3 Thou/mm3 (1.8-7.7); Neutrophils % (Auto) 71 % (37-80); Nucleated Red Blood Cell % 0 /100 WBC (0); Platelet Count 278 Thou/mm3 (140-440); RDW Standard Deviation 53.4 fL (35.1-43.9); Red Blood Count 4.44 Miln/mm3 (4.50-5.90); White Blood Count 7.5 Thou/mm3 (3.8-10.6)
[2024-09-28] MEDS: PIPER/TAZO INJ 4.5 GM in SODIUM CHLORIDE 0.9% (P) 100 ML IV ×2 (05:34→14:13)
[2024-09-28 05:55] LABS: Alanine Aminotransferase 18 U/L (10-49); Albumin, Serum 3.2 gm/dL (3.4-4.8); Alkaline Phosphatase 153 U/L (46-116); Anion Gap 10 (7-16); Aspartate Amino Transferase 71 U/L (0-34); BUN/Creatinine Ratio 30 Ratio (12-20); Bilirubin,Total 0.9 mg/dL (0.3-1.2); Blood Urea Nitrogen 15 mg/dL (9-23); Calcium 8.7 mg/dL (8.3-10.6); Calcium (Corrected) 9.3 mg/dL (8.5-10.1); Carbon Dioxide 24.3 mMol/L (20.0-31.0); Chloride 104 mMol/L (98-107); Creatinine (Component) 0.5 mg/dL (0.6-1.3); Estimated Creatinine Clearance 158.4 mL/min (>60); Globulin 3.3 gm/dL (2.3-3.5); Glucose 87 mg/dL (74-106); Magnesium 2.1 mg/dL (1.6-2.6); Osmolality,Calculated 275 (275-295); Potassium 3.8 mMol/L (3.4-5.1); Sodium 138 mMol/L (136-145); Total Protein 6.5 gm/dL (5.7-8.2); eGFR > 60 See Note
[2024-09-28] MEDS: MORPHINE SULF INJ 10 MG/ML VIAL IVP ×3 (07:26→14:14)
[2024-09-28] MEDS: DOXYCYCLINE INJ 100 MG in SODIUM CHLORIDE 0.9% (P) 100 ML IV (09:15)
[2024-09-28] MEDS: PANTOPRAZOLE INJ 40 MG VIAL IVP (09:15)
[2024-09-28] MEDS: ENOXAPARIN SOD INJ 40 MG/0.4 ML SYRINGE SC (09:15)
--- NOTE | 2024-09-28 10:05 | PC.SS ---
Addendum entered by More Anna 09/28/24 10:32: SS follow up note; SS set up transportation with [facility] for 1530. SS contacted patient's , Karine and updated her as well as Hospice agency and Patient's nurse. Original Note: SS follow up note; Goals of care meeting was conducted at 9AM. Present was SS, Patient's , Patient and Dr. Irwin. Dr. Irwin as well as patient's brother via phone, Dashawn. Dr. Irwin Explained the patient's medical condition to both the patient and the patient's . Patient and his agreed to transition to hospice services, with [facility] being their preferred agency. Submitted Hospice Referral Via [facility] to [facility]. Laura from [facility] contacted and informed SS they are able to follow patient. SS informed her that SS would be setting up transportation with [facility] and would contact her with [facility]. SS will stand by for further needs.
--- NOTE | 2024-09-28 10:55 | ESDS_ITS ---
Planned Discharge Date 09/28/24 DS: Providers Provider Date of admission: 09/27/24 09:38 Primary care physician: Alek Smart MD Admitting Provider: Enrique Shelton MD Attending Provider on Admission: Enrique Shelton MD Consults: 09/27/24 09:49 Referral Speech Therapy Routine Comment: 09/27/24 13:08 [facility] Referral - Transportation Routine Comment: Positive screening for transportation needs. 09/28/24 09:16 Referral Hospice Routine Comment: Attending Provider on DC: Enrique Shelton MD Discharging Provider: Enrique Shelton MD DS: Diagnosis Problem List Completed Was Problem List Reviewed/Reconciled?: Yes Hospital Course Hospital Course Hospital course: 74-year-old male with past medical history of liver cancer with metastasis to the bones and prediabetes was admitted to the hospital on 09/27/2024 due to obstructive pneumonia mostly in the setting of metastatic liver cancer. Came into the ED with increased shortness of breath.Initially came in afebrile and mildly hypertensive. Initial labs were relevant minor transaminitis with AST 87 and alkaline phosphatase 194 as well as an elevated procalcitonin at 0.72. Initial imaging included chest x-ray which showed a 8 cm pulmonary mass of the right upper lobe and chest CTA showed soft tissue mass on the lateral left side of C7, large soft tissue mass destroying the right third rib, atelectasis versus pneumonia, cirrhosis, and distended gallbladder. The patient was started on IV antibiotics as well as IV fluids given that he did not pass a swallow screen and speech therapist stated that his mental status change in between alert or somnolent. Initially patient was very somnolent and was only AO x 1, but on the next day patient was AOx3 and was able to move his right upper arm and was moving a little bit more his lower extremities. Had goals of care discussions with patient's family alongside the patient's nurse and director of social media marketing today in the morning. At this time the patient himself along with his and his brother stated that it was in the best interest to pursue hospice at this time and they would prefer to go home with hospice. Given his overall poor prognosis at this time due to the extent of metastasis we agree that the patient's best interest at this time aligns with hospice. At the time of discharge patient will be discharged home with hospice. 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 Cat Quesada PGY1 Status at Discharge Overall status at discharge: patient is progressing back to baseline Time Spent with Patient Time attestation: Total time spent providing and/or coordinating discharge services:>35 min Exam Vital Signs Temp Pulse Resp BP Pulse Ox O2 Del Method O2 Flow Rate 97.0 F 101 H 16 135/90 H 100 Room Air 1 09/28/24 07:50 09/28/24 07:50 09/28/24 07:50 09/28/24 07:50 09/28/24 07:50 09/28/24 07:50 09/28/24 04:00 Narrative Exam General: A/O x3, ill-appearing Eyes: PERRL, EOMI. Anicteric, vision grossly intact. Ears: No ear pain, no ear discharge, Hearing grossly intact. Nose: No nasal discharge. Mouth/Throat: Dry mucous membranes, no redness, no lesions. Neck: Neck supple, non-tender, no cervical lymphadenopathy. Lungs: Decreased LAMONT, No accessory muscle use. Cardio: Normal S1/S2, regular rhythm, no murmurs, no JVD Abdomen: Soft, non-tender, no palpable masses, peristalsis present, no guarding or rebound. Extremities: Symmetrical, no significant deformities, 1+ peripheral edema , 1+ bilateral upper extremity swelling non-tender, peripheral pulses presents. Skin: No rashes, no lesions, warm to touch. Neuro: Able to follow commands, able to move his LAMONT LE and his R UE, inability to move L UE. Discharge Plan Plan Patient Disposition: Home w/HOSPICE Care Plan Goals: Care plan as per hospice physician Prescriptions/Referrals Prescriptions/Med Rec: Continued methocarbamol 500 mg Tablet 500 mg PO QID PRN (Reason: Pain) Rx Instructions: 1.5 tab PO 4x day prn lidocaine 5 % Adhesive Patch,Medicated 1 patch TOPICAL QDAY Rx Instructions: leave on most painful area for up to 12 hrs. (off 12 hrs, on 12 hrs) gabapentin 100 mg Tablet 100 mg PO Q8H Discontinued sodium chloride 1 gram Tablet 1,000 mg PO QID Rx Instructions: 1gm tab-take 2 tablets PO 4x a day Referrals: Alek Smart MD [Primary Care Provider] - Patient/Caregiver Discharge Instructions Other Discharge Activity Instructions:: Care plan as per hospice physician Education Materials: Hospice The Importance of ..., Hospice Dyspnea Care Print Language: Sinhala Stand Alone Forms: [facility] Award Info., Patient Portal Info Letter Discharge Order Discharge Orders: Discharge (Routine); Ordered 09/28/24 Ordered By: Beto Quesada Quality Discharge Quality Measures VTE prophylaxis MD Attestestation MD Attestation I reviewed labs, imaging, EKG, home medications and prior available records. Face to face evaluation was performed by me. I have personally examined the patient and discussed assessment and plan with the IM team. I reviewed the resident note and agree with the plan with exceptions as below. Hepatocellular carcinoma Lung mass Cervical spine metastasis Dyspnea on exertion Bilateral pneumonia Liver cirrhosis Goals of care discussion/counseling Patient's symptoms are likely related to the large lung mass that is invading the ribs Discussed the case with the patient's oncologist: Poor prognosis. Recommended hospice care Discussed goals of care with patient and family: See event note. Patient will go to hospice Allow pleasure diet. Continue management of pain as needed in the hospice facility Time spent is 40 minutes. More than 50% of the time was spent on patient education and coordination of care.
--- NOTE | 2024-09-28 11:15 | PD.RESEVENT ---
Documentation for date of: 09/28/24 Event Note Event Note: Had goals of care discussion today with the patient along with his , Karine, and patient's older his brother Dashawn via phone call. Also present was More, certified social workers in health care; Loraine, RN; and adjunct nursing faculty. Discussed with the patient and his family about poor prognosis given the metastasis of his cancer at this time and also stated that we spoke with the oncologist who agreed at this time that hospice would be in the best interest for the patient. The patient himself was in agreement at this time was going with hospice as he did not want any more aggressive treatment at this time. Will move forward with hospice and patient will go home with hospice today. Case disclosed with Attending Dr. Cat Quesada PGY1
[2024-10-01 06:59] LABS: Prolactin* 6.9 ng/mL (2.0-18.0)
== END 2024-09-28 16:10 | disposition hospice, home (50) | DRG 193 ==
LOC: SERX 08:06 → SERHOLD 10:12 → S3NX 11:56
PROVIDERS: Emergency Medicine; Admitting Provider Student in an Organized Health Care Education/Training Program; Emergency Provider Emergency Medicine; PCP Internal Medicine Hematology & Oncology; Visit Provider Student in an Organized Health Care Education/Training Program
DX: J18.9 Pneumonia, unspecified organism (principal); J96.01 Acute respiratory failure with hypoxia; C22.0 Liver cell carcinoma; C79.51 Secondary malignant neoplasm of bone; G82.20 Paraplegia, unspecified; G93.40 Encephalopathy, unspecified; K82.8 Other specified diseases of gallbladder; K74.60 Unspecified cirrhosis of liver; I10 Essential (primary) hypertension; E11.40 Type 2 diabetes mellitus with diabetic neuropathy, unspecified; Z66 Do not resuscitate; Z74.01 Bed confinement status; Z79.899 Other long term (current) drug therapy
CPT/HCPCS: 36415; 36600; 71045; 71275; 80053; 81001; 82803; 83605; 83615; 83690; 83735; 83880; 84100; 84145; 84146; 84484; 85025; 85610; 85730; 87040; 87086; 87400; 87811; 92526; 92610; 93005; 94640; 94664; 96365; 99285; A4649; A9270; J1650; J1885; J2270; J2470; J2543; J3490; J7030; J7040; J7050; Q9967

== ENCOUNTER 2024-10-01 09:21 | Observation (INO) | payer MEDICARE, OTHER, SELFPAY ==
[2024-10-01] VITALS (11 sets, daily range): BP systolic 117–157; BP diastolic 64–89; PULSE 60–99; RESP 16–22; TEMP 36.1–36.8; O2SAT 94–100; BMI 25.8
--- NOTE | 2024-10-01 10:33 | PD.EDSOB ---
ED SOB =RME/HPI General Chief Complaint: Shortness of Breath/Dyspnea Stated Complaint: SOB Time Seen by Provider: 10/01/24 10:26 Arrival date/time: 10/01/24 09:21 RME / HPI RME / HPI Narrative: This section includes all my notes and documentations, including HPI, PE, and ED course.? Subhash Cintron MD HPI: 74 year old male with history of liver cancer with bone mets, on hospice care, presents to the ED BIBA from home for evaluation of shortness of breath today. Sister at bedside reports the patient woke up feeling it was hard to breathe and requested to come to the ED. Per medics, on scene patient was saturating 94% on nasal cannula, needing more oxygen than baseline. No fevers or chest pain. Has lung cancer. No other complaints reported. ROS: All negative except as documented in HPI. Physical Exam: General:? Alert and oriented.? In moderate respiratory distress. Eyes:? Conjunctivae and lids clear.? ENT:? No nasal congestion.? Neck:? Supple.? Heart:? RRR.? Lungs: Moderate respiratory distress.? Moderately decreased air movement with bilateral rails. Abdomen:? Soft and nontender.?? Legs:? No clubbing, cyanosis, edema.? Skin:? Warm and dry.?? Neuro:? Alert and oriented X 3.?? Before diagnostics, I suspected CHF and patient was given Lasix and topical NTG and morphine. I reviewed all diagnostic test results. My interpretation of the EKG is?sinus rhythm with no acute ST?T changes. My interpretation of the chest x-ray is large pulmonary mass right lung again noted with pneumonia. My review of the chest CTA report is?positive for small pulmonary embolus in the distal main right pulmonary artery with bilateral pneumonia. Blood tests and urine tests?remarkable for D-dimer 1989. At this point, diagnoses include?pulmonary embolism and pneumonia and respiratory failure. Treatment here included?IV fluid and Rocephin and vancomycin and Lovenox. Patient remained stable. Patient and made decision to into current hospice program. I discussed the case with our hospitalist.? About the presentation and exam and diagnostics and treatments here.? And need of further care in the hospital.? Will accept the patient. Subhash Cintron MD Related Data Home Medications ?Medication ?Instructions ?Recorded ?Confirmed gabapentin 100 mg tablet 100 mg PO Q8H 06/29/24 06/29/24 lidocaine 5 % topical patch 1 patch topical QDAY 06/29/24 06/29/24 methocarbamol 500 mg tablet 500 mg PO QID PRN Pain 06/29/24 06/29/24 Allergies Allergy/AdvReac Type Severity Reaction Status Date / Time No Known Allergies Allergy Verified 06/29/24 14:28 Course Course Course Narrative: chest xray ordered to help determine etiology of chest pain. Quality Measures none Orders Category Date Time Status Bedside COVID-19 Antigen Test NOW Care 10/01/24 10:32 Active Bedside Influenza A&B Antigen Test NOW Care 10/01/24 10:32 Completed COVID-19 Screening Questionnaire NOW Care 10/01/24 13:[address] Screening NOW Care 10/01/24 10:34 Active Decision to Admit X1 Care 10/01/24 13:37 Active EKG (ED ONLY) *Do not use* NOW Care 10/01/24 10:34 Completed Saline [Insert IV] NOW Care 10/01/24 10:32 Active Straight [In and Out Catheter] X1 Care 10/01/24 10:[address] angio chest Stat Exams 10/01/24 10:34 Completed EKG (ED Only) Stat Exams 10/01/24 10:34 Ordered XR chest 1V portable Stat Exams 10/01/24 10:34 Completed ABG [Arterial Blood Gas] Stat Lab 10/01/24 10:51 Completed BNP [B-Type Natriuretic Peptide] Stat Lab 10/01/24 11:03 Completed Blood Culture (Lab) Stat Lab 10/01/24 11:03 Received CBC Stat Lab 10/01/24 11:03 Completed CMP [Comprehensive Metabolic Panel] Stat Lab 10/01/24 11:03 Completed CRP [C-Reactive Protein] Stat Lab 10/01/24 11:03 Completed D-Dimer Stat Lab 10/01/24 11:03 Completed ESR [Sed Rate (ESR)] Stat Lab 10/01/24 11:03 Completed Lactate (Lactic Acid) Stat Lab 10/01/24 11:03 Completed Magnesium Stat Lab 10/01/24 11:03 Completed PT [Prothrombin Time with INR] Stat Lab 10/01/24 11:03 Completed PTT [Partial Thromboplastin Time] Stat Lab 10/01/24 11:03 Completed Procalcitonin Stat Lab 10/01/24 11:03 Completed RSV [Respiratory Syncytial Virus Ag] Stat Lab 10/01/24 12:19 Received TSH [Thyroid Stimulating Hormone] Stat Lab 10/01/24 11:03 Completed Troponin I Stat Lab 10/01/24 11:03 Completed UA, C/S IF [Urinalysis, C/S if Indicated] Stat Lab 10/01/24 12:17 Completed Enoxaparin [Lovenox] Med 10/01/24 12:52 Discontinued 80 mg SC X1 ONE Furosemide Inj [Lasix Inj] Med 10/01/24 10:33 Discontinued 40 mg IVP X1 ONE Morphine Inj Med 10/01/24 10:33 Discontinued 2 mg IVP X1 ONE Nitroglycerin Oint 2% [Nitro-paste Oint 2%] Med 10/01/24 10:33 Discontinued 1 inch TOP X1 ONE Sodium Chloride 0.9% 1000 ml [Ns] 1,000 ml Med 10/01/24 12:47 Active IV 999 mls/hr Vancomycin Inj 2,000 mg Med 10/01/24 12:55 Active Sodium Chloride 0.9% 500 ml [Ns] 500 ml IV X1 cefTRIAXone [Rocephin] 1,000 mg Med 10/01/24 12:54 Discontinued SODIUM CHLORIDE 0.9% (Popper) [NS 0.9% (Popper)] 50 ml IV X1 Vital Signs Vital signs: Vital Signs Temperature 97.7 F 10/01/24 09:35 Pulse Rate 98 10/01/24 09:35 Respiratory Rate 22 H 10/01/24 09:35 Blood Pressure 157/87 H 10/01/24 09:35 Pulse Oximetry (%) 98 10/01/24 09:35 Oxygen Delivery Method Nasal Cannula 10/01/24 09:35 Oxygen Flow Rate 4 10/01/24 09:35 Shortness of Breath / Dyspnea MDM Narrative MDM Narrative:: Carlyn Holloway am scribing for and in the presence of Dr. Cintron. Patient data External records reviewed:: [facility] previous records (I reviewed admission from 09/27/2024 through 09/28/2024) and EMS form Clinical information provided by:: patient, family and spouse Social determinants that could affect healthcare access:: none Patient has the following chronic illnesses:: liver cancer with bone mets, on hospice care How is presenting disease/condition affected by chronic disease/condition?: exacerbated by Evaluation data The following diagnostics were reviewed and interpreted by me:: lab results, radiology exam(s) and EKG tracing(s) Lab and/or radiology exams considered but not ordered:: My interpretation of the EKG is: Sinus rhythm (75 bpm) with nonspecific ST-T changes. Subhash Cintron MD Interpretation Summary: My interpretation of the chest x-ray is large pulmonary mass right lung again noted My review of the chest CTA report is?positive for small pulmonary embolus in the distal main right pulmonary artery. Medications / Prescriptions Medications or Prescriptions considered but not ordered:: None Medication administrations:: Medication Administration History Sodium Chloride (Ns) 1,000 mls @ 999 mls/hr IV .Q1H1M ONE Stop: 10/01/24 13:47 Last Admin: 10/01/24 13:16 Dose: 999 mls/hr Documented By: LUZ ELENA Vancomycin HCl 2,000 mg/ (Sodium Chloride) 500 mls @ 150 mls/hr IV X1 ONE Stop: 10/01/24 16:14 Last Admin: 10/01/24 13:13 Dose: 150 mls/hr Documented By: LUZ ELENA Discontinued Medications Enoxaparin Sodium (Enoxaparin Sod Inj 100 Mg/Ml Syringe) 80 mg SC X1 ONE Stop: 10/01/24 12:53 Last Admin: 10/01/24 13:12 Dose: 80 mg Documented By: LUZ ELENA Furosemide (Furosemide Inj 10 Mg/Ml 4ml Vial) 40 mg IVP X1 ONE Stop: 10/01/24 10:34 Last Admin: 10/01/24 13:12 Dose: 40 mg Documented By: LUZ ELENA Ceftriaxone Sodium 1,000 mg/ (Sodium Chloride) 50 mls @ 100 mls/hr IV X1 ONE Stop: 10/01/24 13:23 Last Admin: 10/01/24 13:25 Dose: 100 mls/hr Documented By: LUZ ELENA Morphine Sulfate (Morphine Sulf Inj 10 Mg/Ml Vial) 2 mg IVP X1 ONE Stop: 10/01/24 10:34 Last Admin: 10/01/24 13:12 Dose: 2 mg Documented By: LUZ ELENA Nitroglycerin (Nitroglycerin Oint 2% 1 Inch Packet) 1 inch TOP X1 ONE Stop: 10/01/24 10:34 Last Admin: 10/01/24 13:13 Dose: 1 inch Documented By: LUZ ELENA Initially, Lasix and topical NTG and morphine. With diagnosis of PE and pneumonia, he was given IV fluid and Rocephin and vancomycin. Consultations Consultation(s) initiated? (list below): No Consultation #1 (Physician, Specialty, Details): I spoke with resident working with Dr. Dorado regarding admission. Discussed patients PMHx, HPI, ED course, exam findings, labs, and radiology results. Will come evaluate the patient in the ED. Diagnosis Shortness of Breath Differential Diagnosis: acute exacerbation of chronic obstructive airways disease, congestive heart failure, community acquired pneumonia, asthma with exacerbation and pulmonary embolism Most likely diagnosis given after review of the tests above:: PE and pneumonia and respiratory failure Admission Indicated Admission indicated?: indicated Explain why admission is indicated or not indicated:: PE and pneumonia respiratory failure Admission Request Was there a request for admission?: Yes Admission Attestation Admission request attestation: Discussed case with [] from Hospitalist service regarding admission. Discussed patients ED course, exam findings, labs, and radiology results. The Hospitalist [agrees,declines] to accept the patient for admission. Disposition Plan Disposition Plan: Admit Discharge Plan Plan Patient Disposition: Admit Acute Care w/in Hospital Prescriptions/Referrals Prescriptions/Med Rec: No Action methocarbamol 500 mg Tablet 500 mg PO QID PRN (Reason: Pain) Rx Instructions: 1.5 tab PO 4x day prn lidocaine 5 % Adhesive Patch,Medicated 1 patch TOPICAL QDAY Rx Instructions: leave on most painful area for up to 12 hrs. (off 12 hrs, on 12 hrs) gabapentin 100 mg Tablet 100 mg PO Q8H Referrals: Norma Aden MD [Primary Care Provider] - In 1 week Problem List Clinical Impression: Pulmonary embolism, Pneumonia, Acute and chronic respiratory failure with hypoxia Patient/Caregiver Discharge Instructions Print Language: Latvian Stand Alone Forms: [employer] Award Info., Patient Portal Info Letter
--- NOTE | 2024-10-01 10:34 | XR_ITS ---
Examination: CTA chest with intravenous contrast 2-D reconstructions 3-D reconstructions, vascular Date and time of exam: October 01, 2024 1154 hrs. Indications: Diagnosis multiple myeloma, large soft tissue mass destroying the right third rib on chest examination September 27, 2024 CTDI: vol (mGy) 23.6 DLP: (mGycm) 556 Technique: Multiple axial sections of the thorax have been obtained. 3 mm slice thickness, from below the hemidiaphragms to above the apices of the lungs. Mediastinal and lung density settings have been obtained. 2-D sagittal and coronal reconstructions. 3-D angiographic renderings, 3-D volume renderings, 3D post processing, vascular maximum intensity projections obtained. Contrast administered is 100 cc Isovue-370. Low dose protocols were performed. One or more of the following dose reduction techniques were used; automated exposure control, adjustment of the mA and/or KV according to patient size, use of iterative reconstruction technique. Findings: No thoracic aortic aneurysm dilatation Pulmonary artery segments are not enlarged Filling defect in the distal right main pulmonary artery image 73 Extensive bilateral lung opacity consistent with pneumonia especially left base Mild enlargement cardiac contour Moderate thoracic spondylosis Severe osteopenia Cirrhosis, liver irregular in contour Distended gallbladder Mild bilateral hydronephrosis No pancreatic mass Impression: Positive for small pulmonary embolus in the distal main right pulmonary artery Again noted large soft tissue mass destroying the right third rib Diffuse scattered areas of bilateral pneumonia Cirrhosis Mild bilateral hydronephrosis
--- NOTE | 2024-10-01 10:34 | XR_ITS ---
Examination: AP chest single view Technique: AP portable semiupright chest single view Exam date and time: October 01, 2024 1038 hrs. Indications: Shortness of breath today Findings: Large pulmonary mass again noted in the right lung, stable compared with September 27, 2024 Right Port-A-Cath tip satisfactory position Accentuation interstitial markings throughout the lungs Suspicious for early pneumonia left upper lobe versus new pulmonary mass left upper lobe 16 mm Mild prominence left ventricle Prominent osteopenia Impression: Large pulmonary mass right lung again noted Bronchitis pattern Suspicious for early pneumonia left upper lobe versus new pulmonary mass
[2024-10-01 10:59] LABS: Allen Test Performed/OK; Base Excess 2 (-3-3); HCO3 27 mEq/L (20-26); Inspired O2, VO2 Liters 2 L/min; O2 Saturation 98 % (91-98); PCO2 41 mmHg (32.0-48.0); PO2 85 mmHg (83-108); Puncture Site Right Radial; pH, Arterial 7.42 (7.35-7.45)
[2024-10-01 11:10] LABS: Lactate (Lactic Acid) 1.6 mMol/L (0.4-2.0)
[2024-10-01 11:20] LABS: Basophils % (Auto) 0 % (0-2.5); Eosinophils % (Auto) 0 % (0-10); Hematocrit 39.4 % (41.0-53.0); Hemoglobin 12.7 g/dL (13.5-16.0); Immature Granulocytes % (Auto) 0 % (0-0); Immature Granulocytes Auto 0.02 Thou/mm3 (0.00-0.00); Lymphocytes # (Auto) 0.4 Thou/mm3 (1.0-4.8); Lymphocytes % (Auto) 6 % (10-50); Mean Corpuscular HGB Conc 32.2 g/dl (31.0-37.0); Mean Corpuscular Hemoglobin 28.5 pg (25.0-35.0); Mean Corpuscular Volume 89 fL (80-100); Monocytes # (Auto) 0.1 Thou/mm3 (0.0-0.8); Monocytes % (Auto) 2 % (0-12); Neutrophils # (Auto) 6.1 Thou/mm3 (1.8-7.7); Neutrophils % (Auto) 92 % (37-80); Nucleated Red Blood Cell % 0 /100 WBC (0); Platelet Count 368 Thou/mm3 (140-440); RDW Standard Deviation 53.5 fL (35.1-43.9); Red Blood Count 4.45 Miln/mm3 (4.50-5.90); White Blood Count 6.7 Thou/mm3 (3.8-10.6)
[2024-10-01 11:34] LABS: B-Type Natriuretic Peptide 58 pg/mL (0-100)
[2024-10-01 11:51] LABS: D-Dimer 1990 ng/mL (<600)
[2024-10-01 11:53] LABS: INR 1.3 (0.9-1.3); Partial Thromboplastin Time 34.3 Seconds (22.0-36.0); Prothrombin Time 13.7 Seconds (9.0-12.2)
[2024-10-01 11:56] LABS: Alanine Aminotransferase 20 U/L (10-49); Albumin, Serum 3.4 gm/dL (3.4-4.8); Alkaline Phosphatase 140 U/L (46-116); Anion Gap 9 (7-16); Aspartate Amino Transferase 105 U/L (0-34); BUN/Creatinine Ratio 40 Ratio (12-20); Bilirubin,Total 1.2 mg/dL (0.3-1.2); Blood Urea Nitrogen 16 mg/dL (9-23); C-Reactive Protein 20.8 mg/dL (0.0-0.9); Calcium 8.7 mg/dL (8.3-10.6); Calcium (Corrected) 9.2 mg/dL (8.5-10.1); Carbon Dioxide 24.8 mMol/L (20.0-31.0); Chloride 99 mMol/L (98-107); Creatinine (Component) 0.4 mg/dL (0.6-1.3); Globulin 3.5 gm/dL (2.3-3.5); Glucose 140 mg/dL (74-106); Magnesium 2.2 mg/dL (1.6-2.6); Osmolality,Calculated 269 (275-295); Potassium 4.5 mMol/L (3.4-5.1); Procalcitonin 0.71 ng/ml (0.0-0.49); Sodium 133 mMol/L (136-145); Thyroid Stimulating Hormone 2.56 uIU/mL (0.55-4.78); Total Protein 6.9 gm/dL (5.7-8.2); Troponin I < 0.002 ng/mL (0.0-0.045); eGFR > 60 See Note
[2024-10-01 12:31] LABS: Collection Type, Urine Clean Catch
[2024-10-01] MEDS: FUROSEMIDE INJ 10 MG/ML 4ML VIAL 40 MG IVP (13:12)
[2024-10-01] MEDS: ENOXAPARIN SOD INJ 100 MG/ML SYRINGE 80 MG SC (13:12)
[2024-10-01] MEDS: MORPHINE SULF INJ 10 MG/ML VIAL 2 MG IVP (13:12)
[2024-10-01] MEDS: NITROGLYCERIN OINT 2% 1 INCH PACKET TOP (13:13)
[2024-10-01] MEDS: Vancomycin Inj 2,000 MG in SODIUM CHLORIDE 0.9% 500 ML 500 ML 150 MG IV (13:13)
[2024-10-01] MEDS: SODIUM CHLORIDE 0.9% 1000 ML 1,000 ML 999 ML IV (13:16)
[2024-10-01 13:22] LABS: Bilirubin,Urine Negative (Negative); Blood,Urine Negative (Negative); Clarity,Urine Clear (Clear/Hazy); Color,Urine Yellow (Lt Yel-Yel); Culture Indicated,Urine Not Indicated; Glucose, Urine Negative (Negative); Ketones,Urine 1+ (Negative); Leukocyte Esterase,Urine Negative (Negative); Nitrite,Urine Negative (Negative); PH,Urine 5.5 (5.0-7.0); Protein,Urine Trace (Neg - Trace); RBC,Urine 1 /hpf (0-3); Specific Gravity,Urine 1.028 (1.001-1.035); Squamous Epithelial Cell,Urine < 1 /hpf (0-5); WBC,Urine 2 /hpf (0-5)
[2024-10-01] MEDS: cefTRIAXone 1,000 MG in SODIUM CHLORIDE 0.9% (Popper) 50 ML 100 MG IV (13:25)
[2024-10-01 13:33] LABS: Sed Rate (ESR) 107 mm/hr (0-20)
--- NOTE | 2024-10-01 15:29 | PC.CC ---
Patient is a 74 year-old male who presents to the hospital for SOB. Dorota LAYTON made [id number] contact with patient. ASW introduced self, role, and reason for visit. Patient appeared alert but not oriented. ASW completed assessment with patient's , Karine Edwards . Patient lives at home with his , Karine and confirmed information on demographics. Patient's reports the patient does not have a POA, [facility] Directive, or POLST. Patient is is non ambulatory and is bed bound. Patient's helps patient complete his ADLs. Per , patient's reports he is hospice and will continue upon being discharge. The hospice company is [facility] out of [place], [place]. Patient's primary care provider is Dr. Aden. Upon discharge patient's plans to take him back home with his hospice. environmental services specialist to follow up with any discharge needs.
--- NOTE | 2024-10-01 15:45 | ESHP_ITS ---
<Statement entered by Jones Dorado MD - 10/06/24 07:47> I reviewed above note and agree with findings and plans. I have also personally examined the patient with medicine team and went over assessment and plan with medical team including management internship and resident physician. <Statement entered by Tawana Diaz MD - 10/01/24 16:29> I discussed with and supervised my co-resident involved in the care of this patient. I agree with the assessment and plan as documented above. 74-year-old male with past medical history of HCC with metastasis to the bones with soft tissue mass who presented to the ER for shortness of breath. Patient was recently discharged 4 days ago on hospice for post-obstructive pneumonia in the setting of HCC with bone and lung mets. He returns to the ER for dyspnea and was found to have small PE on CT imaging. Per ER, family want to temporarily reverse the hospice and treat the patient for pneumonia and the pulmonary embolism. On physical exam, patient is complaining of diffuse body pain and shortness of breath. We will treat the patient with IV antibiotics and anticoagulation for the PE. Tawana Diaz MD PGY-3 Documentation for date of: 10/01/24 HPI History of Present Illness Chief complaint: SOB History of present illness: 74-year-old male with past medical history of HCC with metastasis to the bones and prediabetes was admitted to hospital on 10/01/2024 after coming to the ED with complaints of shortness of breath. Patient was recently discharged on 09/28/2024 on hospice as per family wishes, but patient's was at bedside stated that today the patient was feeling very short of breath and requested that he be brought to the hospital. Patient's stated that the patient has not eating anything for the past 2 days as he has been sleeping most of the day, but today he was very short of breath and he himself decided they want to come to the ER. In the ER patient was found to have small pulmonary emboli in the distal main right pulmonary artery after chest CTA was done. As patient was recently on hospice it was explained to the patient, his , and patient's sister was on phone call that at this time we admitted the patient his hospice will be revoked. I also discussed with them that current treatment for his pulmonary emboli at this time was anticoagulation. I explained the risk and benefits at this time and that this treatment would not guarantee prolongation of the patient's life expectancy, but patient's and the patient's of stated that they would like to be admitted to the hospital today and to treat the pulmonary emboli with anticoagulation. They also stated that they would like to be treated with IV antibiotics as it was found on imaging as well. Per the patient's they were very content with hospice, but would like to be admitted to the hospital for further treatment of his pulmonary embolism and pneumonia at this time. Patient denied any abdominal pain, fevers, chest pain, bloody stools, or urinary symptoms. Patient again was noticed to have cough and he stated that he was having shortness of breath. ED course: Initially came in hypoxic, hypertensive, and tachypneic. Initial labs were relevant for low hemoglobin (12.7), elevated ESR (107), elevated D-dimer (1990), elevated CRP (20.8), and elevated procalcitonin (0.71). Initial imaging included EKG which showed a left bundle branch block, chest CTA which showed small pulmonary emboli in the distal main right pulmonary artery, large soft tissue mass distorting the right third rib, bilateral pneumonia, cirrhosis, and mild bilateral hydronephrosis; chest x-ray showed large pulmonary mass and suspicion for pneumonia of the left upper lobe. PMH: As above FMH: Mother had pancreatic cancer Medications: None as per patient's Allergies: NKDA Review of Systems Review of Systems Narrative Review of Systems: Constitutional: Denies sweats, Denies weight loss/gain, Denies fever, Denies chills. HEENT: Denies hearing loss, Denies ear pain, Denies postnasal drip, Denies double vision, Denies blurry vision. Respiratory: Admits shortness of breath, Admits cough, Denies wheezing. Cardiovascular: Denies chest pain, Denies palpitations, Denies sudden loss of consciousness. GI: Denies blood in stool, Denies constipation, Denies abdominal pain, Denies difficulty swallowing, Denies nausea or vomit. : Denies urinary incontinence, Denies pain while urinating, Denies increased urinary frequency. MSK: Denies joint pain, Denies joint swelling, Denies numbness. Skin: Denies rash, Denies itching, Denies easy bruising. Neuro: Denies headaches, Denies dizziness, Denies seizures. Past Medical History Past Medical History CARDIAC: Positive Cardiac Disorders, Cardiac Arrhythmia, Hypertension and Hypotension GASTROINTESTINAL: Positive Cirrhosis MUSCULOSKELETAL: Positive Musculoskeletal Disorders (cannot lift left shoulder; weakness use wheelchair and walker for mobility) and Arthritis OTHER HISTORY: Positive Cancer (hepatocellular carcinoma (liver)) Social History SMOKING STATUS: Never smoker SUBSTANCE USE: does not use ALCOHOL: Never Exam Vital Signs Temp Pulse Resp BP Pulse Ox O2 Del Method O2 Flow Rate 98.1 F 73 18 117/89 H 95 Nasal Cannula 4 10/01/24 12:00 10/01/24 13:13 10/01/24 12:00 10/01/24 13:13 10/01/24 12:00 10/01/24 12:00 10/01/24 12:00 Narrative Exam General: A/O x3, ill-appearing, drowsy Eyes: PERRL, EOMI. Anicteric, vision grossly intact. Ears: No ear pain, no ear discharge, Hearing grossly intact. Nose: No nasal discharge. Mouth/Throat: Dry mucous membranes, no redness, no lesions. Neck: Neck supple, non-tender, no cervical lymphadenopathy. Lungs: Decreased LAMONT, No accessory muscle use. Cardio: Normal S1/S2, regular rhythm, no murmurs, no JVD Abdomen: Soft, non-tender, no palpable masses, peristalsis present, no guarding or rebound. Extremities: Symmetrical, no significant deformities, 1+ peripheral edema , 1+ bilateral upper extremity swelling non-tender, peripheral pulses presents. Skin: No rashes, no lesions, warm to touch. Neuro: Able to follow commands, minimally able to move his LAMONT LE and his R UE, inability to move L UE. Results: Labs 10/01/24 11:03 10/01/24 11:03 Labs: Short CBC 10/01/24 Range/Units 11:03 WBC 6.7 (3.8-10.6) Thou/mm3 Hgb 12.7 L (13.5-16.0) g/dL Hct 39.4 L (41.0-53.0) % Plt Count 368 D (140-440) Thou/mm3 BMP 10/01/24 11:03 Sodium 133 L Potassium 4.5 Chloride 99 Carbon Dioxide 24.8 BUN 16 Creatinine 0.4 L Glucose 140 H Calcium 8.7 Cardiac Enzymes 10/01/24 Range/Units 11:03 Troponin I < 0.002 (0.0-0.045) ng/mL Liver Function 10/01/24 Range/Units 11:03 Total Bilirubin 1.2 (0.3-1.2) mg/dL AST 105 H (0-34) U/L ALT 20 (10-49) U/L Alkaline Phosphatase 140 H (46-116) U/L Albumin 3.4 (3.4-4.8) gm/dL Urine 10/01/24 Range/Units 12:17 Urine Color Yellow (Lt Yel-Yel) Urine Clarity Clear (Clear/Hazy) Urine pH 5.5 (5.0-7.0) Ur Specific [place] 1.028 (1.001-1.035) Urine Protein Trace (Neg - Trace) Urine Glucose (UA) Negative (Negative) ABG Interpretation ABG results: 10/01/24 10:51 ABG pH 7.42 ABG pCO2 41 ABG pO2 85 ABG HCO3 27 H ABG O2 Saturation 98 ABG Base Excess 2 Quality Measures Quality Measures none Advance care planning discussed with:: patient, spouse and sibling Medications Home Medications and Allergies Home Medications ?Medication ?Instructions ?Recorded ?Confirmed ?Type gabapentin 100 mg tablet 100 mg PO Q8H 06/29/2406/29 History lidocaine 5 % topical patch 1 patch topical QDAY 06/2906/29/24 History methocarbamol 500 mg tablet 500 mg PO QID PRN Pain 06/29/24 History Allergies Allergy/AdvReac Type Severity Reaction Status Date / Time No Known Allergies Allergy Verified 06/29/24 14:28 Visit Medications Vancomycin HCl 2,000 mg/ (Sodium Chloride) 500 mls @ 150 mls/hr IV X1 ONE Stop: 10/01/24 16:14 Last Admin: 10/01/24 13:13 Dose: 150 mls/hr Discontinued Medications Enoxaparin Sodium (Enoxaparin Sod Inj 100 Mg/Ml Syringe) 80 mg SC X1 ONE Stop: 10/01/24 12:53 Last Admin: 10/01/24 13:12 Dose: 80 mg Furosemide (Furosemide Inj 10 Mg/Ml 4ml Vial) 40 mg IVP X1 ONE Stop: 10/01/24 10:34 Last Admin: 10/01/24 13:12 Dose: 40 mg Sodium Chloride (Ns) 1,000 mls @ 999 mls/hr IV .Q1H1M ONE Stop: 10/01/24 13:47 Last Infusion: 10/01/24 14:37 Dose: Infused Ceftriaxone Sodium 1,000 mg/ (Sodium Chloride) 50 mls @ 100 mls/hr IV X1 ONE Stop: 10/01/24 13:23 Last Infusion: 10/01/24 14:37 Dose: Infused Morphine Sulfate (Morphine Sulf Inj 10 Mg/Ml Vial) 2 mg IVP X1 ONE Stop: 10/01/24 10:34 Last Admin: 10/01/24 13:12 Dose: 2 mg Nitroglycerin (Nitroglycerin Oint 2% 1 Inch Packet) 1 inch TOP X1 ONE Stop: 10/01/24 10:34 Last Admin: 10/01/24 13:13 Dose: 1 inch Assessment & Plan Plan 74-year-old male with past medical history of 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 #Pulmonary embolism #Septic pneumonia in the setting of malignancy #Metastatic HCC ? Patient came in with shortness of breath which was worsening today. ? Patient has stage IV liver cancer and was discharged recently on hospice ? Chest CTA showed small pulmonary emboli in the distal right main pulmonary artery. ? Chest x-ray did show some pneumonia of the left upper lobe ?At this time patient and his family have decided to proceed with treatment for pulmonary embolism and pneumonia. Plan: ? Start Eliquis 10mg BID for 7 days [10/01-10/08/2024] then 5mg BID ? Start Zosyn and doxycycline [10/01/2024?] ? Protonix ? IV fluids ? Blood cultures and urine cultures pending ? Will continue to monitor #Cirrhosis #Mild bilateral hydronephrosis ? Chest CTA had findings of cirrhosis and mild bilateral hydronephrosis ? Patient does not have any symptoms at this time. ? Will continue to monitor Disposition: Patient was admitted for observation due to pulmonary embolus and obstructive pneumonia likely in the setting of malignancy. Will start patient on Eliquis and IV antibiotics Diet: N.p.o. GI prophylaxis: Protonix DVT prophylaxis: Eliquis CODE STATUS: DNR Case discussed with attending Dr. Obad in my senior Dr. Diaz PGY3 Beto Quesada PGY1
[2024-10-01 15:53] LABS: Respiratory Syncytial Virus Ag Negative (Negative)
[2024-10-01] MEDS: PANTOPRAZOLE INJ 40 MG VIAL IVP (15:58)
[2024-10-01] MEDS: SODIUM CHLORIDE 0.9% 1000 ML 1,000 ML 80 ML IV (15:59)
[2024-10-01] MEDS: PIPER/TAZO INJ 3.375 GM in SODIUM CHLORIDE 0.9% (Popper) 50 ML IV ×2 (15:59→21:05)
--- NOTE | 2024-10-01 18:00 | PC.NURSE ---
report received from Arlette CHURCH from ED.
[2024-10-01] MEDS: ALBUTEROL/IPRATROPIUM (Duoneb) RT SOL 3 ML NEBU INH ×2 (19:02→22:37)
[2024-10-01] MEDS: DOXYCYCLINE INJ 100 MG in SODIUM CHLORIDE 0.9% (POP) 100 ML IV (20:56)
[2024-10-02] VITALS (9 sets, daily range): BP systolic 110–135; BP diastolic 58–69; PULSE 62–82; RESP 16–20; TEMP 36.1–36.9; O2SAT 95–100
[2024-10-02] MEDS: ALBUTEROL/IPRATROPIUM (Duoneb) RT SOL 3 ML NEBU INH ×4 (02:49→14:52)
[2024-10-02] MEDS: SODIUM CHLORIDE 0.9% 1000 ML 1,000 ML 80 ML IV (03:59)
[2024-10-02] MEDS: PIPER/TAZO INJ 3.375 GM in SODIUM CHLORIDE 0.9% (Popper) 50 ML IV ×2 (05:22→14:21)
[2024-10-02 05:37] LABS: Basophils % (Auto) 0 % (0-2.5); Eosinophils % (Auto) 0 % (0-10); Hematocrit 39.7 % (41.0-53.0); Hemoglobin 13.1 g/dL (13.5-16.0); Immature Granulocytes % (Auto) 0 % (0-0); Immature Granulocytes Auto 0.02 Thou/mm3 (0.00-0.00); Lymphocytes # (Auto) 0.8 Thou/mm3 (1.0-4.8); Lymphocytes % (Auto) 12 % (10-50); Mean Corpuscular Hemoglobin 28.7 pg (25.0-35.0); Mean Corpuscular Volume 87 fL (80-100); Monocytes # (Auto) 0.6 Thou/mm3 (0.0-0.8); Monocytes % (Auto) 9 % (0-12); Neutrophils # (Auto) 5.3 Thou/mm3 (1.8-7.7); Neutrophils % (Auto) 79 % (37-80); Nucleated Red Blood Cell % 0 /100 WBC (0); Platelet Count 244 Thou/mm3 (140-440); Red Blood Count 4.56 Miln/mm3 (4.50-5.90); White Blood Count 6.7 Thou/mm3 (3.8-10.6)
[2024-10-02 06:01] LABS: INR 1.2 (0.9-1.3); Partial Thromboplastin Time 27.3 Seconds (22.0-36.0); Prothrombin Time 13.2 Seconds (9.0-12.2)
[2024-10-02 07:17] LABS: Alanine Aminotransferase 22 U/L (10-49); Albumin, Serum 3.4 gm/dL (3.4-4.8); Alkaline Phosphatase 144 U/L (46-116); Anion Gap 12 (7-16); Aspartate Amino Transferase 102 U/L (0-34); BUN/Creatinine Ratio 43 Ratio (12-20); Bilirubin,Total 0.7 mg/dL (0.3-1.2); Blood Urea Nitrogen 17 mg/dL (9-23); Calcium 8.8 mg/dL (8.3-10.6); Calcium (Corrected) 9.3 mg/dL (8.5-10.1); Carbon Dioxide 22.9 mMol/L (20.0-31.0); Chloride 102 mMol/L (98-107); Creatinine (Component) 0.4 mg/dL (0.6-1.3); Estimated Creatinine Clearance 169.8 mL/min (>60); Globulin 3.4 gm/dL (2.3-3.5); Glucose 108 mg/dL (74-106); Magnesium 2.2 mg/dL (1.6-2.6); Osmolality,Calculated 276 (275-295); Potassium 4.2 mMol/L (3.4-5.1); Sodium 137 mMol/L (136-145); Total Protein 6.8 gm/dL (5.7-8.2); eGFR > 60 See Note
[2024-10-02 09:06] LABS: INR 1.2 (0.9-1.3); Partial Thromboplastin Time 21.9 Seconds (22.0-36.0); Prothrombin Time 13.2 Seconds (9.0-12.2)
[2024-10-02] MEDS: PANTOPRAZOLE INJ 40 MG VIAL IVP (09:21)
[2024-10-02] MEDS: MORPHINE SULF INJ 10 MG/ML VIAL IVP ×2 (09:36→14:37)
[2024-10-02] MEDS: DOXYCYCLINE INJ 100 MG in SODIUM CHLORIDE 0.9% (POP) 100 ML IV (10:39)
--- NOTE | 2024-10-02 10:44 | PC.SS ---
Addendum entered by More Anna 10/02/24 12:57: SS follow up note; SS contacted [facility] services and ETA was set up for 4:15-4:30PM SS contacted patient's , Karine to inform her of ETA as well as Dorothy from [facility] SS contacted patients nurse,Deanne as well and provided ETA.. Original Note: SS follow up note; Goals of care meeting was conducted at 9:30AM. Present was SS, Patient's , Patient and Dr. Irwin. Dr. Alexandre as well as patient's sisters and other family. Dr. Irwin Explained the patient's medical condition to both the patient and the patient's . Patient and his agreed to transition to hospice services, patient was previously with [facility], however would like [facility] being their preferred agency. Submitted Hospice Referral Via [facility] to [place]. Dorothy contacted and informed SS they are able to follow patient. SS informed her that SS would be setting up transportation with [facility] and would contact her with ETA. SS will stand by for further needs.
--- NOTE | 2024-10-02 12:01 | ESDS_ITS ---
<Statement entered by Jones Dorado MD - 10/06/24 07:48> I reviewed above note and agree with findings and plans. I have also personally examined the patient with medicine team and went over assessment and plan with medical team including international sales representative and resident physician. Planned Discharge Date 10/02/24 DS: Providers Provider Date of admission: 10/01/24 15:39 Primary care physician: Norma Aden MD Admitting Provider: Jones Dorado MD Attending Provider on Admission: Jones Dorado MD Consults: 10/02/24 07:38 Referral Speech Therapy Routine Comment: 10/02/24 09:23 Referral Hospice Routine Comment: 10/02/24 09:42 Referral Hospice Routine Comment: Attending Provider on DC: Jones Dorado MD Discharging Provider: Jones Dorado MD DS: Diagnosis Problem List Completed Was Problem List Reviewed/Reconciled?: Yes Hospital Course Hospital Course Hospital course: 74-year-old male with past medical history of 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 Came in to the ED with complaints of shortness of breath. Initially came in hypoxic, hypertensive, and tachypneic. Initial labs were relevant for low hemoglobin (12.7), elevated ESR (107), elevated D-dimer (1990), elevated CRP (20.8), and elevated procalcitonin (0.71). Initial imaging included EKG which showed a left bundle branch block, chest CTA which showed small pulmonary emboli in the distal main right pulmonary artery, large soft tissue mass distorting the right third rib, bilateral pneumonia, cirrhosis, and mild bilateral hydronephrosis; chest x-ray showed large pulmonary mass and suspicion for pneumonia of the left upper lobe. Patient had been recently discharged on 09/28/2024 on hospice as per patient's and family' wishess, but on the day of admission patient stated that he want to come to the ER as he was having shortness of breath. Patient has not been eating anything for the past 2 days prior to admission since he had been sleeping most of the days. Patient was found to have a pulmonary embolism upon imaging, this was explained to the patient and his that there current treatment for this was anticoagulation and had a thorough discussion with them about the risk and benefits about starting patient on these medications. Also explained to the patient and his at this time that given his poor prognosis and given that he was recently on hospice and that he would like to go back on hospice it would be futile at this time given that it would not guarantee to extend his life expectancy. At this time they decided they want to be admitted to the hospital even though that their hospice would be revoked and that they wanted to have patient on IV antibiotics and anticoagulation. Patient did not pass his swallow screen therefore he was not able to be started on Eliquis at this time. Discussion to start patient heparin was done with the patient and he decided that he would not like to to get that at this time. Had another goals of care discussion on 10/02/2024 with patient and his family (, sisters, and [id number]) as well as patient's nurse and social services technician. At this time after an extensive discussion with them about the patient's current prognosis and patient's current wishes they decided to proceed with hospice at this time. Discussed with them into detail with being in hospice meant and they were in agreement that they want to pursue hospice at this time. They also were in agreement to not treat the pulmonary embolism at this time as it would be futile. At the time of discharge patient was stable enough to be discharged home with hospice. Discharge plan: Continue management as per hospice physician Problem list: #Pulmonary embolism #Septic pneumonia in the setting of malignancy #Metastatic HCC #Cirrhosis #Mild bilateral hydronephrosis Case discussed with attending Dr. Dorado in my senior Dr. Diaz PGY3 Beto Quesada PGY1 Status at Discharge Overall status at discharge: patient is progressing back to baseline Time Spent with Patient Time attestation: Total time spent providing and/or coordinating discharge services:>35 min Exam Vital Signs Temp Pulse Resp BP Pulse Ox O2 Del Method O2 Flow Rate 97.4 F 82 17 135/69 H 97 Room Air 1 10/02/24 11:40 10/02/24 11:40 10/02/24 11:40 10/02/24 11:40 10/02/24 11:40 10/02/24 11:40 10/02/24 06:29 Narrative Exam General: A/O x3, ill-appearing, more awake today Eyes: PERRL, EOMI. Anicteric, vision grossly intact. Ears: No ear pain, no ear discharge, Hearing grossly intact. Nose: No nasal discharge. Mouth/Throat: Dry mucous membranes, no redness, no lesions. Neck: Neck supple, non-tender, no cervical lymphadenopathy. Lungs: Decreased LAMONT, No accessory muscle use. Cardio: Normal S1/S2, regular rhythm, no murmurs, no JVD Abdomen: Soft, non-tender, no palpable masses, peristalsis present, no guarding or rebound. Extremities: Symmetrical, no significant deformities, 1+ peripheral edema , 1+ bilateral upper extremity swelling non-tender, peripheral pulses presents. Skin: No rashes, no lesions, warm to touch. Neuro: Able to follow commands, minimally able to move his LAMONT LE and his R UE, inability to move L UE. Discharge Plan Plan Patient Disposition: Home w/HOSPICE Care Plan Goals: -Continue management as per Hospice physician Prescriptions/Referrals Prescriptions/Med Rec: Continued lidocaine 5 % Adhesive Patch,Medicated 1 patch TOPICAL QDAY Rx Instructions: leave on most painful area for up to 12 hrs. (off 12 hrs, on 12 hrs) Discontinued methocarbamol 500 mg Tablet 500 mg PO QID PRN (Reason: Pain) Rx Instructions: 1.5 tab PO 4x day prn gabapentin 100 mg Tablet 100 mg PO Q8H Referrals: Norma Aden MD [Primary Care Provider] - Patient/Caregiver Discharge Instructions Other Discharge Activity Instructions:: -Continue management as per Hospice physician Print Language: Lithuanian Stand Alone Forms: [employer] Award Info., Patient Portal Info Letter Discharge Order Discharge Orders: Discharge (Routine); Ordered 10/02/24 Ordered By: Beto Quesada Quality Discharge Quality Measures VTE prophylaxis
[2024-10-02] MEDS: ACETAMINOPHEN 325 MG TABLET 650 MG PO (13:21)
[2024-10-02 15:07] LABS: INR 1.3 (0.9-1.3); Partial Thromboplastin Time 29.9 Seconds (22.0-36.0); Prothrombin Time 13.5 Seconds (9.0-12.2)
== END 2024-10-02 16:26 | disposition hospice, home (50) ==
LOC: SERX 13:38 → SERHOLD 16:14 → S3NX 10-02 04:37 → SERHOLD 10-02 04:39
PROVIDERS: Admitting Provider Internal Medicine; Emergency Provider Emergency Medicine; PCP Specialist; Visit Provider Internal Medicine
DX: A41.9 Sepsis, unspecified organism (principal); J18.9 Pneumonia, unspecified organism; I26.99 Other pulmonary embolism without acute cor pulmonale; C80.1 Malignant (primary) neoplasm, unspecified; C78.7 Secondary malignant neoplasm of liver and intrahepatic bile duct; K74.60 Unspecified cirrhosis of liver; N13.30 Unspecified hydronephrosis
CPT/HCPCS: 36415; 36600; 71045; 71275; 80053; 81001; 82803; 83605; 83735; 83880; 84145; 84443; 84484; 85025; 85379; 85610; 85652; 85730; 86140; 87040; 87081; 87400; 87634; 87811; 92610; 93005; 94640; 94664; 96361; 96365; 96366; 96372; 99285; A4649; A9270; G0378; J0696; J1650; J1940; J2270; J2470; J2543; J3370; J3490; J7030; J7040; J7050; Q9967